=== PATIENT | female | born 1955 | race Caucasian/White ===

== ENCOUNTER → 2017-06-05 08:45 | Outpatient (CLI) | payer BC, SELFPAY ==
--- NOTE | 2017-06-05 08:47 | US_ITS ---
STUDY: ABDOMINAL ULTRASOUND - RIGHT UPPER QUADRANT REASON FOR VISIT: Female, 62 years old. Right upper quadrant pain. TECHNIQUE: Ultrasound evaluation of the right upper quadrant was performed with real-time and static nava-scale imaging. TECHNICAL QUALITY: Adequate. COMPARISON: None. FINDINGS: Liver: The liver measures 15.5 cm. There is increased echogenicity consistent with fatty infiltration. The bile ducts are within normal limits. There is hepatic color flow. The direction of portal flow is hepatopetal. There is no demonstrated mass lesion. Gallbladder: Normal distended gallbladder. The gallbladder wall measures 3.0 mm. There is a negative sonographic Laguna's sign. There is no pericholecystic fluid. There are multiple echogenic structures within the gallbladder, consistent with multiple gallstones. Common Bile Duct (C.B.D.): The common bile duct measures 3.2 mm. Pancreas: Normal size of the head, body and tail of the pancreas. There is normal echogenicity of the pancreas. There is no demonstrated pancreatic mass or cyst. Right Kidney: Normal size of the right kidney. The right kidney measures 10.3 cm x 4.4 cm x 5.4 cm. Normal renal cortex. The right cortex measures 1.5 cm. There is no demonstrated renal mass or cyst. There is no right hydronephrosis. US/Gallbladder IMPRESSION: Multiple gallstones. Fatty infiltration of the liver. Electronically Signed: Eriberto Blanco MD at 13:07 EST Tel [phone], Service support ,
== END ==
PROVIDERS: Family Provider Family Medicine; PCP Family Medicine; Visit Provider Surgery
DX: R10.11 Right upper quadrant pain (principal)
CPT/HCPCS: 76705

== ENCOUNTER 2017-06-13 07:26 | Day surgery (SDC) | payer BC, SELFPAY ==
[2017-06-13] VITALS (7 sets, daily range): BP systolic 129–163; BP diastolic 67–87; PULSE 74–88; RESP 16–18; TEMP 36.3–36.6; O2SAT 94–96; BMI 28.5
--- NOTE | 2017-06-13 | GALL_PTH ---
PATIENT: KURTIS CAT LOC: [facility] [place] U#:[id number] AGE/SX: 62/F ROOM: RE06/13/[address]: Dr. Cachorro Meyers MD : 1955 BED: DIS: 06/13/2017 SPEC #: [id number] RECD: 06/13/17 12:16 STATUS: SUSAN LUCIO #: [id number] MANUEL: 06/13/17 00:[address]: Cachorro Meyers DEPT: SURGICAL PATHOLOGY RECD BY: Mariano Peralta ENTERED: 06/13/17 12:17 SP TYPE: ORLIN BUTTS DR: Dr. Skyler Amador MD Tissues: Gallbladder, NOS Procedures: Surgery Specimen Level III HEADER OPERATION: Laparoscopic cholecystectomy with IOC PRE-OP DIAGNOSIS: Chronic cholecystitis with calculus TISSUE SUBMITTED: Gallbladder MICROSCOPIC DIAGNOSIS Gallbladder: Mild chronic cholecystitis, cholelithiasis and focal cholesterolosis. SJ:patrice 06/16/17 MICROSCOPIC DESCRIPTION Slides are reviewed. GROSS DESCRIPTION Received is one container labeled with the patient's name and designated gallbladder. The specimen consists of a gallbladder measuring 11 cm in length and up to 4 cm in diameter. The external surface is pink-thomas, smooth and glistening for the most part. Focally it is granular, hemorrhagic and contains cautery artifact. The gallbladder contains green-yellow mucoid bile and multiple multifaceted, yellowish-green to brown stones and stone fragments measuring in aggregate 6 x 5.5 x 3 cm and 0.1 to 2.5 cm in greatest dimension. The mucosa is bile-stained and without any mass lesions. The gallbladder wall measures up to 0.2 cm in thickness. Geochemical Laboratory Technician sections from the gallbladder and the cystic duct are submitted in one cassette. / SJ:rg 06/13/17 TC:3 CPT: 82157
--- NOTE | 2017-06-13 07:34 | EKG12_ITS ---
Test Reason : PRE OP Blood Pressure : / mmHG Vent. Rate : 072 BPM Atrial Rate : 072 BPM P-R Int : 164 ms QRS Dur : 084 ms QT Int : 420 ms P-R-T Axes : 006 009 027 degrees QTc Int : 459 ms Normal sinus rhythm Normal ECG No previous ECGs available Confirmed by ORALIA OMALLEY ([id number]), editor sound YAN REBOLLAR ([id number]) on 06/16/2017 2:20:32 PM Referred By: Cachorro Meyers Confirmed By:ORALIA OMALLEY
[2017-06-13 08:04] LABS: Hematocrit 41.6 % (37-47); Hemoglobin 14.2 g/dl (12.0-15.0); Mean Corp Hgb Conc 34.1 g/gl (32-36); Mean Corpuscular Hgb 29.2 pg (27.0-32.0); Mean Corpuscular Volume 85.6 fL (81-99); Mean Platelet Vol. 8.6 fl (6.2-12.0); Platelet Count 338 K/mm3 (150-450); RBC Distribution Width CV 13.4 % (11.6-14.6); RBC Distribution Width SD 41.7 fl (35.1-43.9); Red Blood Count 4.86 M/mm3 (4.2-5.4); Scan Indicated on CBC? Y/N NO
[2017-06-13 08:12] LABS: Anion Gap 8 (5-15); BUN 17 mg/dL (7-18); BUN/Creat Ratio 22.5 RATIO (10-20); Calcium,Total 8.6 mg/dL (8.5-10.1); Chloride 108 mmol/L (98-107); Creatinine, Serum 0.76 mg/dL (0.55-1.02); EST Glomerular Filtration Rate 82 mL/min (>60); Est Glom Filt Rate - Afr Amer 100 mL/min (>60); Estimated Creatinine Clearance 59.92 ml/min; Glucose 103 mg/dL (74-106); Potassium 4.2 mmol/L (3.5-5.1); Sodium Level 142 mmol/L (136-145)
--- NOTE | 2017-06-13 09:24 | PCM.DC.GS ---
Discharge Diet: Light diet - advance as tolerated - if you have questions about your diet instructions, please talk to you doctor. Discharge Activity: May Not Drive - for 1 week or while taking narcotic pain medicine. May shower in (days): 1 Lifting Restrictions: 10 pounds Call your doctor if your incision/area has: Continuous Slow Oozing, Sudden Increased Bleeding, Increased Pain/ Swelling, Increased Redness, Foul Smelling Discharge Call your doctor if you observe: Fever of 101 or Higher Suture Line Care: Avoid Pulling/Pushing, Avoid Pinching/Bending Additional Dressing/Incision Instructions:: Change or remove dressing in 4 days. Leave steri-strips in place for 1 week. Allergies/Adverse Reactions: Allergies acetaminophen [From Percocet] Allergy (Unknown, Verified 06/12/17 13:59) Unknown codeine Allergy (Unknown, Verified 06/12/17 13:59) Unknown oxycodone [From Percocet] Allergy (Unknown, Verified 06/12/17 13:59) Unknown Subzbcx-Lsb-Fne Reductase Inhibitor Allergy (Unknown, Verified 06/12/17 13:59) Unknown Medications to take at Discharge amlodipine 10 mg tablet 10 mg PO QDAY 06/03/17 dicyclomine 20 mg tablet 20 mg PO Q6H PRN 06/03/17 lorazepam 1 mg tablet 1 mg PO Q8H PRN tab 06/03/17 mometasone 220 mcg (14 doses) breath activated powder inhaler 1 puff INHALATION QHS 06/03/17 omeprazole 40 mg capsule,delayed release 40 mg PO DAILY 06/03/17 paroxetine 30 mg tablet 30 mg PO DAILY 06/03/17 venlafaxine ER 75 mg capsule,extended release 24 hr 75 mg PO DAILY 06/03/17 Ascorbic Acid [Vitamin C] 500 mg PO DAILY 06/12/17 Cyanocobalamin (Vitamin B-12) [Vitamin B12] 2,500 mcg PO DAILY 06/12/17 Flaxseed Oil 1,000 mg PO DAILY 06/12/17 Folic Acid 1 mg PO DAILY@0800 06/12/17 Glucosamine/MSM/Chondroitin A [Glucosamine Chondroit MSM Tab] 1 each PO DAILY 06/12/17 Lactobacillus Acidophilus [Acidophilus] 1 each PO DAILY 06/12/17 Lecithin 1,200 mg PO DAILY 06/12/17 Magnesium Oxide [Magnesium] 400 mg PO DAILY 06/12/17 [place]-3 Fatty Acids/Fish Oil [Fish Oil 1,000 mg Capsule] 1 each PO DAILY 06/12/17 Potassium 99 mg PO DAILY 06/12/17 Pyridoxine HCl [Vitamin B6] 100 mg PO DAILY 06/12/17 Ubidecarenone/Vitamin E Mixed [Apu37-Kmp E 200 mg-20 Unit Sfg] 1 each PO DAILY 06/12/17 Vitamin A 8,000 unit PO DAILY 06/12/17 Vitamin D3 1,000 mg PO DAILY 06/12/17 Vitamin E 400 unit PO DAILY 06/12/17 Yeast,Dried (S. Cerevisiae) [Gold's Yeast] 1,000 mg PO DAILY 06/12/17 Zinc 50 mg PO DAILY 06/12/17 Hydrocodone Bitart/Apap 5-325 [[place] 5MG-325MG] 1 tablet PO Q6H PRN PRN 3 Days #6 tablet 06/13/17 The following prescriptions were given: Hydrocodone Bitart/Apap 5-325 [[place] 5MG-325MG] 1 tablet PO Q6H PRN PRN 3 Days #6 tablet PRN Reason: Pain Primary Care Physician: Skyler Amador [Primary Care Provider] - Please Follow Up With: Cachorro Meyers MD - [phone] When: Call to make an appointment to be seen in about 10 days.
--- NOTE | 2017-06-13 09:29 | RAD_ITS ---
STUDY: INTRAOPERATIVE CHOLANGIOGRAM. REASON FOR EXAM: Female, 62 years old. Laparoscopic cholecystectomy. FLUOROSCOPY TIME (if supplied): (9 seconds) minutes/seconds TECHNIQUE: Intraoperative cholangiogram was performed by the surgeon. Imaging was submitted. COMPARISON: None. FINDINGS: The common bile duct is not dilated. No intraluminal filling defect is seen. There is free flow of contrast into the duodenum. RAD/Cholangiogram/ O R,Initial IMPRESSION: Unremarkable examination. Electronically Signed: Eriberto Blanco MD at 12:24 EDT Tel [phone], Service support ,
[2017-06-13] MEDS: Cefazolin 2 GM in 0.9% Normal Saline 100 ML IV (09:43)
[2017-06-13] MEDS: Bupivacaine Mpf 0.5% 30 ML VIAL (10:30)
--- NOTE | 2017-06-13 10:36 | OP.PCM_ITS ---
Problem List (1) Chronic cholecystitis with calculus Status: Acute Report of Operation Date of Procedure: 06/13/17 Pre-Operative Diagnosis: Chronic cholecystitis cholelithiasis Post-Operative Diagnosis: same Surgery/Procedure Performed:: Laparoscopic cholecystectomy with cholangiography Description of Surgical Findings:: Timeout and informed consent was obtained. 62-year-old female taken out from placement table underwent general ventricular-based anesthesia. Ancef 2 g given intravenously preoperatively. 0.5% Marcaine was used as local anesthetic. Throughout the procedure total 30 cc was used. Skin sites were pre -anesthetized. Because of her previous mesh repair at the umbilicus I made a vertical incision superior to that previous incision did a direct cutdown technique at direct access to the abdomen placed in a Laguna catheter. The abdomen was insufflated with CO2 to pressure of 10 mmHg pressure. There is no evidence of any adhesions to the anterior abdominal wall. There were adhesions of omentum however to the gallbladder consistent with previous bouts of inflammation. 5 mm trochars are placed in the epigastrium and mid abdomen and right upper quadrant. The gallbladder was distracted the adhesions the omentum were sharply and bluntly dissected free. Then the infundibular area was dissected free. Hemoclips were used for hemostasis were indicated. The hepatocystic triangle was fully dissected free and the cystic duct and cystic artery were clearly identified. A Hem-o-bella clip was placed on the cystic duct incision in the cystic duct and through a 14-gauge Angiocath Bruneian Garrett catheter was inserted. Fluoroscopically controlled claims grams were obtained demonstrating normal ductal anatomy and free flow into the small bowel. Then the cholangiogram catheter was removed and additional Hem-o-bella clip was placed on the cystic duct prior to transecting it. The cystic artery was clipped twice proximally prior to transecting it. The gallbladder was dissected free from the liver bed. The liver bed was actually very using despite the fact that the adherence of the gallbladder was not significant. Electrocautery was used for hemostasis. The gallbladder was released and placed in retrieval bag. The right upper quadrant was irrigated and aspirated free of excess fluid. Hemostasis was intact. A piece of fibular was placed in the liver bed as well. The gallbladder was exited the umbilicus because of a sizable gallstone the fascial incision was lengthened slightly widened superiorly. The gallbladder was successfully released. The remaining trochars were removed under direct visualization. The abdomen was allowed to deflate of the CO2. The fascia at the umbilicus was approximated running 0 Vicryl suture. Skin edges proximate interrupted from 4-0 Monocryl subdermal stitches. Steri-Strips Telfa and OpSite dressings applied. Sponge instrument and needle counts were reported to the surgeon to be correct. Blood loss was minimal no apparent complication she was taken to the recovery room in satisfactory condition. Specimens gallbladder. Drains none. Blood loss minimal. Cachorro Meyers M.D., F.A.C.S.
[2017-06-13] MEDS: Ketorolac 15 MG/ML Vial IV (11:55)
== END 2017-06-13 13:55 | disposition home or self-care (01) ==
LOC: SDC 07:28 → AC 07:28
PROVIDERS: Anesthesiology; Family Provider Family Medicine; PCP Family Medicine; Visit Provider Surgery
PROC: (CPT 47610; principal; 2017-06-13 09:10)
DX: K80.10 Calculus of gallbladder with chronic cholecystitis without obstruction (principal); I10 Essential (primary) hypertension; F41.9 Anxiety disorder, unspecified; K58.9 Irritable bowel syndrome, unspecified; K21.9 Gastro-esophageal reflux disease without esophagitis; E78.00 Pure hypercholesterolemia, unspecified; F32.9 Major depressive disorder, single episode, unspecified; Z79.899 Other long term (current) drug therapy
CPT/HCPCS: 47563; 36415; 74300; 76000; 80048; 85027; 88304; 93005; J7120; J2405

== ENCOUNTER → 2020-09-22 | Outpatient (CLI) | payer MEDICARE, OTHER, SELFPAY ==
[2017-06-13 07:52] VITALS: BMI 28.5
[2020-09-22 17:40] LABS: RBC /Synovial Fluid 0.066 10^6/uL (0); Synovial Fld Mononuclear WBC % 23.4 %; Synovial Fld Polynuclear WBC # 1.733 10^3/uL; Synovial Fld Polynuclear WBC % 76.6 %
[2020-09-22 17:43] LABS: AUTO B FLUID DILUENT BKGD CT WBC <0.1 RBC <0.01 (W<.1,R<.01); CRYSTALS, BODY FLUID See PATH REV
[2020-09-22 17:45] LABS: Viscosity / Synovial Fluid Liquid (HIGH)
[2020-09-22 17:46] LABS: Appearance /Synovial Fluid Opaque (CLEAR); Color / Synovial Fluid Red (Pale Yellow); Synovial Fld Mononuclear WBC # 0.528 10^3/ul
[2020-09-22 17:59] LABS: Source / Synovial Fluid LEFT ELBOW
[2020-09-22 19:26] LABS: Lymph 13 %; Monocyte /Synovial Fluid 13 %; Neutrophil 73 % (0-25)
[2020-09-22 19:27] LABS: Body Fluid QC Type(s) BF1,BF2; Other Cell /Synovial Fluid 1 %; Source- Body Fluid SYNOVIAL
[2020-09-25 13:40] LABS: Pathologist Review Reviewed
[2020-09-25 13:41] LABS: Pathologist Comment Reviewed
== END | disposition home or self-care (01) ==
LOC: LABSPEC 16:36
PROVIDERS: PCP Family Medicine; Referring Provider Orthopaedic Surgery; Visit Provider Orthopaedic Surgery
DX: M70.22 Olecranon bursitis, left elbow (principal)
CPT/HCPCS: 87070; 87075; 87205; 89050; 89051; 89060

== ENCOUNTER → 2021-10-16 | Outpatient (CLI) | payer MEDICARE, OTHER, SELFPAY ==
[2021-10-16 11:28] LABS: Absolute Lymphocyte Count 1.39 X10^3/uL (0.83-4.51); Basophil# 0.04 X10^3/uL; Basophil% 0.8 % (0-1); Eosinophil# 0.19 X10^3/uL; Eosinophils% 3.7 % (0-5); Hematocrit 43.4 % (37-47); Hemoglobin 14.4 g/dL (12.0-15.0); Lymphocyte # 1.39 X10^3/ul (0.83-4.51); Lymphocyte % 27.1 % (19-41); Mean Corp Hgb Conc 33.2 g/dL (32-36); Mean Corpuscular Hgb 30.2 pg (27.0-32.0); Monocyte# 0.44 X10^3/uL; Monocyte% 8.6 % (0-10); NRBC Flagged by Analyzer 0 % (0-5); Neutrophil # 3.04 X10^3/uL (2.7-7.7); Neutrophil % 59.4 % (47-70); Platelet Count 366 K/mm3 (150-450); RBC Distribution Width CV 12.1 % (11.6-14.6); RBC Distribution Width SD 40.3 fl (35.1-43.9); Red Blood Count 4.77 M/mm3 (4.2-5.4); White Blood Count 5.1 K/mm3 (4.4-11.0)
[2021-10-19 11:08] LABS: Alternaria tenuis <0.10 kU/L (Class 0); Ash, White <0.10 kU/L (Class 0); Aspergillus fumigatus <0.10 kU/L (Class 0); Bermuda Grass <0.10 kU/L (Class 0); Birch <0.10 kU/L (Class 0); Black Walnut <0.10 kU/L (Class 0); Cat Hair / Dander,Stand <0.10 kU/L (Class 0); Cedar, Mountain <0.10 kU/L (Class 0); Cladosporium herbarum <0.10 kU/L (Class 0); Cockroach, American <0.10 kU/L (Class 0); Cottonwood <0.10 kU/L (Class 0); D farinae Mite <0.10 kU/L (Class 0); D pteronyssinus <0.10 kU/L (Class 0); Dog Epithelia <0.10 kU/L (Class 0); Elm, American White <0.10 kU/L (Class 0); Immunoglobulin E 6 IU/mL (6-495); Maple/Box Elder <0.10 kU/L (Class 0); Mulberry, White <0.10 kU/L (Class 0); Oak, White <0.10 kU/L (Class 0); Pecan <0.10 kU/L (Class 0); Penicillium Notatum <0.10 kU/L (Class 0); Pigweed, Rough <0.10 kU/L (Class 0); Ragweed, Short/Common <0.10 kU/L (Class 0); Russian Thistle <0.10 kU/L (Class 0); Sheep Sorrel <0.10 kU/L (Class 0); Sycamore, American <0.10 kU/L (Class 0); Timothy Grass <0.10 kU/L (Class 0)
[2021-10-19 22:12] LABS: Mouse Urine <0.10 kU/L (Class 0)
[2021-10-19 22:13] LABS: Immunoglobulin E 6 IU/mL (6-495)
== END | disposition home or self-care (01) ==
PROVIDERS: PCP Family Medicine; Referring Provider Internal Medicine Critical Care Medicine; Visit Provider Internal Medicine Critical Care Medicine
DX: J30.9 Allergic rhinitis, unspecified (principal); J45.909 Unspecified asthma, uncomplicated
CPT/HCPCS: 36415; 82785; 85025; 86003

== ENCOUNTER → 2021-11-08 | Outpatient (CLI) | payer MEDICARE, OTHER, SELFPAY ==
--- NOTE | 2021-11-09 07:29 | PFT ---
INTRODUCTION: The patient is a 66-year-old female that presents for pulmonary function studies secondary to a diagnosis of asthma. Respiratory therapy reported good patient effort. Bronchodilators were used during testing. INTERPRETATION: Forced expiration spirometry demonstrates no evidence of a large airways obstructive ventilatory defect. There was no significant response to aerosolized bronchodilators. Spirograms are of good quality and plateau normally. Body plethysmography was performed and reveals lung volumes to be within normal limits. Diffusing capacity by single breath CO is also within normal limits. IMPRESSION: Grossly normal pulmonary function studies.
== END | disposition home or self-care (01) ==
LOC: PSN 09:37
PROVIDERS: PCP Family Medicine; Referring Provider Internal Medicine Critical Care Medicine; Visit Provider Internal Medicine Critical Care Medicine
DX: J45.909 Unspecified asthma, uncomplicated (principal)
CPT/HCPCS: 94060; 94726; 94729

== ENCOUNTER → 2022-09-03 | Outpatient (CLI) | payer MEDICARE, OTHER, SELFPAY ==
--- NOTE | 2022-09-03 16:39 | PFT ---
Methacholine challenge testing report Indication: Asthma Referring physician: Saulo Amador, DO The patient had methacholine challenge testing, with baseline spirometry, followed by progressively increasing doses of methacholine's from 0.0038-0.9571 methacholine concentrations. Results: Baseline spirometry was normal. FEV1 was 111% predicted. The patient completed dose level 5 of 6. There was no significant decrease in FVC or FEV1; the maximum change was -5% in FVC at level 5. Review of the flow volume loops corroborate the lack of airway obstruction at all doses of methacholine tested. Manager Telemarketing comments indicate acceptable and reproducible results, with good patient effort. Impression: Normal methacholine challenge test, with no evidence of airway reactivity Clinical correlation is recommended regarding any medications the patient may have taken, and when, prior to this test.
== END | disposition home or self-care (01) ==
PROVIDERS: PCP Family Medicine; Referring Provider Internal Medicine Critical Care Medicine; Visit Provider Internal Medicine Critical Care Medicine
DX: J45.909 Unspecified asthma, uncomplicated (principal)
CPT/HCPCS: 94070; 95070; J3490; J7674

== ENCOUNTER → 2023-01-23 | Outpatient (CLI) | payer MEDICARE, OTHER, SELFPAY ==
[2023-01-23 15:21] LABS: Absolute Lymphocyte Count 1.54 X10^3/uL (0.83-4.51); Absolute Neutrophil Count 2.9 X10^3/uL (2.0-7.7); Basophil# 0.05 X10^3/uL; Eosinophil# 0.26 X10^3/uL; Eosinophils% 4.9 % (0-5); Hematocrit 42.9 % (37-47); Lymphocyte # 1.54 X10^3/ul (0.83-4.51); Lymphocyte % 29.3 % (19-41); Mean Corp Hgb Conc 32.6 g/dL (32-36); Mean Corpuscular Hgb 29.4 pg (27.0-32.0); Mean Corpuscular Volume 89.9 fL (81-99); Mean Platelet Vol. 9.3 fl (6.2-12.0); Monocyte# 0.52 X10^3/uL; Monocyte% 9.9 % (0-10); NRBC Flagged by Analyzer 0 % (0-5); Neutrophil # 2.88 X10^3/uL (2.7-7.7); Neutrophil % 54.7 % (47-70); Platelet Count 355 K/mm3 (150-450); RBC Distribution Width CV 12.5 % (11.6-14.6); Red Blood Count 4.77 M/mm3 (4.2-5.4); White Blood Count 5.3 K/mm3 (4.4-11.0)
[2023-01-23 15:32] LABS: Erythrocyte Sedimentation Rate 3 mm/hr (0-30)
[2023-01-23 16:11] LABS: CRP < 2.90 mg/L (0.0-3.0)
== END | disposition home or self-care (01) ==
LOC: MTLAB 11:53
PROVIDERS: PCP Family Medicine; Referring Provider Specialist; Visit Provider Specialist
DX: Z96.651 Presence of right artificial knee joint (principal)
CPT/HCPCS: 36415; 85025; 85652; 86140

== ENCOUNTER 2023-08-06 05:24 | Inpatient (IN) | payer MEDICARE, OTHER, SELFPAY ==
--- NOTE | 2023-07-22 09:53 | EKG12_ITS ---
Test Reason : PRE-OP Blood Pressure : / mmHG Vent. Rate : 078 BPM Atrial Rate : 078 BPM P-R Int : 170 ms QRS Dur : 090 ms QT Int : 402 ms P-R-T Axes : 006 010 041 degrees QTc Int : 458 ms Normal sinus rhythm Normal ECG Confirmed by TREVIN SHARMA, DAISY ([id number]), telegraph editor DALLAS ANDRES ([id number]) on 07/28/2023 1:31:17 PM Referred By: MARLENY Confirmed By:ZEV ZHONG MD
[2023-07-22 10:57] LABS: Absolute Lymphocyte Count 1.55 X10^3/uL (0.83-4.51); Absolute Neutrophil Count 3.2 X10^3/uL (2.0-7.7); Basophil# 0.04 X10^3/uL; Basophil% 0.7 % (0-1); Eosinophil# 0.24 X10^3/uL; Eosinophils% 4.4 % (0-5); Hematocrit 44.4 % (37-47); Hemoglobin 14.5 g/dL (12.0-15.0); Lymphocyte # 1.55 X10^3/ul (0.83-4.51); Lymphocyte % 28.1 % (19-41); Mean Corp Hgb Conc 32.7 g/dL (32-36); Mean Corpuscular Hgb 29.2 pg (27.0-32.0); Mean Corpuscular Volume 89.3 fL (81-99); Mean Platelet Vol. 9.3 fl (6.2-12.0); Monocyte% 9.1 % (0-10); NRBC Flagged by Analyzer 0 % (0-5); Neutrophil # 3.17 X10^3/uL (2.7-7.7); Neutrophil % 57.5 % (47-70); Platelet Count 358 K/mm3 (150-450); RBC Distribution Width CV 12.4 % (11.6-14.6); RBC Distribution Width SD 40.4 fl (35.1-43.9); Red Blood Count 4.97 M/mm3 (4.2-5.4); White Blood Count 5.5 K/mm3 (4.4-11.0)
[2023-07-22 11:31] LABS: Magnesium 2.4 mg/dL (1.6-2.6)
[2023-07-22 11:33] LABS: Albumin, Serum 4.1 g/dL (3.2-5.0); Anion Gap 5 (5-15); BUN 17 mg/dL (7-18); Calcium,Total 9.6 mg/dL (8.5-10.1); Chloride 107 mmol/L (98-107); Creatinine, Serum 1.06 mg/dL (0.55-1.02); EST Glomerular Filtration Rate 55 mL/min (>60); Est Glom Filt Rate - Afr Amer 66 mL/min (>60); Glucose 121 mg/dL (74-106); Potassium 4.2 mmol/L (3.5-5.1); Sodium Level 139 mmol/L (136-145)
--- NOTE | 2023-08-01 12:35 | PCM.HP.BLA ---
History and Physical History and Physical? Patient Name: Tracy Boucher : 1955 From:? ABBIE BROUSSARD PA-C? DATE OF PRE-OPERATIVE EXAM: 08/01/2023 DATE OF SURGERY:? 08/06/2023 SCHEDULED PROCEDURE:? Revision left total knee arthroplasty HISTORY OF PRESENT ILLNESS: Preoperative history and physical exam was performed on August 01, 2023.? This is a 68-year-old female who is undergone a previous left total knee arthroplasty at an outside institution.? She had a knee replacement which the implant was recalled.? She has a [employer] knee replacement.? Patient had surgery by Dr. Lauren at the [facility] [place] on March 01, 2017.? She also had a prior knee arthroscopy on that knee.? Patient's current pain is 9/10.? Her pain is dull, aching, sharp and sore.? Pain is increased with going up and down stairs and walking.? She does complain of instability with the left knee.? Pain is located over the anterior knee.? Pain does not awaken her at night.? Patient also reports that she did not ever get adequate relief of her pain and swelling following rehabilitation and surgery.? She has fallen secondary to the knee pain.? She feels unsafe running.? Patient has difficulty with activities of daily living including shopping and leisure activities such as playing pickleball.? Patient has attempted a brace without relief.? She also complains of severe pain in her right knee.? Patient has had previous right knee arthroscopy in the past in 2017.? Gastroesophageal reflux disease, dural bowel syndrome, thyroid disease, anxiety, depression, prediabetes with last A1c 6.0, stage II chronic kidney disease.? She denies past history of DVT or pulmonary embolism.? There is been no recent fevers, chills, recent infections.? Denies chest pain or shortness of breath.? Patient has obtain surgical clearance from Dr. Amador.? After failing conservative measures and discussing all treatment options with Dr. Jose R Skelton, the patient does wish to proceed with a revision left total knee arthroplasty. REVIEW OF SYSTEMS: Review Of Systems: Constitutional: Denies change in appetite, fever,or weight change. Cardiovasular: Denies chest pain, heart murmur and irregular heartbeat. Respiratory: Denies cough, pneumonia, shortness of breath, tuberculosis and wheezing. Gastrointestinal: Reports constipation and heartburn, but denies diarrhea, nausea, rectal itching, bloody stools and vomiting. Genitourinary: Denies female genital problems. Denies incontinence. Musculoskeletal: Reports leg swelling, pain, trouble walking and weakness. Skin: Denies Raynaud's, history of shingles and tattoo. Neurological: Denies ambulatory dysfunction, dizziness, numbness/tingling and tremor. Psychiatric: Reports anxiety and insomnia, but denies stress. Hematologic/Lymphatic: Denies anemia, bleeding/bruising tendency and past transfusion. Reviewed, no changes. PAST MEDICAL HISTORY: Advance Care Plan: Other Directive, POA Effective Date: 09/19/2020 Other Directive, LIVING WILL Effective Date: 09/19/2020 Past Medical History: Medical Problems: Arthritis, High Blood Pressure, Hypercholesterolemia, Acid Reflux, Irritable Bowel, Thyroid Disease, Anxiety, Depression, pre-diabetes Kidney Disease/Renal Failure - stage 2? Accidents: Fracture - (11/20/2022) LT SHOULDER FX / FELL WHILE RUNNING? Surgical Hx: Tonsillectomy - [facility] Tubal Ligation - [facility] DR AMADOR Carpal Tunnel 1998 - B/L DR MARYSOL MORRIS Knee Arthroscopy LT - (2015) RT Thumb LT Knee Arthroscopy - (04/19/2016) SAW@[facility] Knee Arthroscopy RT - (2016) MENISCUS Gallbladder - (2018) Knee Replacement LT - (2016) Trigger Finger Release - METATARSALS 4 AND 3 RT AND LT? Anesthesia Complications: None Assistive Devices: Glasses Reviewed and updated. SOCIAL HISTORY: Social History: Marital: .Occupation: Not Currently Working.Work Status: Not Working Currently.Hand Dominance: Right-handed. Personal Habits:? Cigarette Use: Never Smoked Cigarettes.Smokeless Tobacco: Never Used Smokeless Tobacco.E-Cigarette Use: Never used.Alcohol: Occasionally.Drug Use: Denies Use.Enjoy Exercising: Exercises 1-3 X/Week. Reviewed, no changes. VITALS: Ht: 62.7 Wt: 171lb Wt k.566 BMI: 30.6 BP: 130/78 Pulse: 82 Resp: 18 T: 98.4 T: 36.9C Pain Level: 9 O2SatR: 96 ALLERGIES: Sulfa Codeine Statin Drugs? MEDICATIONS: Paroxetine HCL 30 mg 1 tab po daily, Amlodipine Besylate 10 mg 1 by mouth every day, Venlafaxine HCL ER 75 mg 1 by mouth every day, Omeprazole 40 mg 1 cap po daily, Dicyclomine HCL 20 mg 1 by mouth three times a day, Lorazepam 1 mg 2 tab po daily, Mucinex? as needed, Natural Vitamins? daily, Levothyroxine Sodium 50 mcg one tab po once daily, Fenofibrate 40 mg daily, Calcium 280 mg daily, Zinc 30 mg daily, Magnesium 300 mg daily PRE-OP EXAM:? General appearance:NORMAL? ? ? Other: Eyes: Conjunctivae and lids: NORMAL? Pupils: ERR Ears, Nose, Mouth, and Throat: NORMAL? Other: Inspection of lips, teeth and gums: NORMAL? ?Other: Neck: Examination of neck: no masses noted. Respiratory: Assessment of respiratory effort: NORMAL? ?Other: ?Auscultation of lungs: clear to auscultation no wheezes, rhonchi or rales. Cardiovascular:? Auscultation of heart: regular rate and rhythm, no murmurs, gallops or rubs. PHYSICAL EXAMINATION: Patient does walk with an antalgic gait.? Previous incision is well-healed without erythema.? She has increased pain over the anterior knee at the pes anserine region.? There is tenderness to palpation in this area.? Range of motion: 0 extension to 122 flexion.? Stable to varus/valgus stress test. IMAGING STUDIES: Previous x-rays of the left knee reveal well aligned total knee replacement with well fixed tibial implant.? Femoral implant shows questionable lucency behind the anterior flange.? Patella tracks well.? On the Contralateral knee did reveal varus alignment with medial joint space narrowing, subchondral sclerosis, osteophyte formation consistent with severe stage IV bone on bone osteoarthritis. IMPRESSION: 1.? Painful left total knee arthroplasty 2.? Severe right knee osteoarthritis 3.? Hypertension 4.? Hypercholesterolemia 5.? Gastroesophageal reflux disease 6.? Irritable bowel syndrome 7.? Thyroid disease 8.? Depression/anxiety 9.? Prediabetes: Most recent A1c 6.0 10.? Stage II chronic kidney disease 11.? Obesity with BMI 30.6 PLAN: Dr. Jose R Skelton did discuss and review with the patient all treatment options including surgical versus nonsurgical options.? Patient does wish to proceed with the above-stated procedure.? Potential risks, benefits, and complications of the procedure were discussed in detail including but not limited to , infection, nerve and blood vessel damage, persistent pain, numbness, tingling, paresthesias, blood clot, pulmonary embolism, and requirement for possible further surgery.? The patient expressed full understanding and has no further questions for the doctor.? Patient does agree to proceed with the above-stated procedure and has signed the surgery consent form. POST-OP MEDICATION PLAN: Pain Medications:? Postoperative pain regimen will be initiated by Dr. Jose R Skelton in the hospital.? Patient thinks there may have been a narcotic that she did not tolerate well.? She will contact our office if she does remember or find out which one it was.? We are unable to use nonsteroidal anti-inflammatories due to the chronic kidney disease.? We discussed postoperative antibiotics including doxycycline in which she is more sensitive to the sunlight and should take appropriate precautions.? Also recommend probiotic while on the antibiotic. DVT Prophylaxis:? Aspirin 81 mg twice daily for 4 weeks postoperatively.? Denies past history of DVT or pulmonary embolism This dictation was created using voice recognition software. Phonetic and/or grammatical errors may exist. ___? I have re-examined the patient.? There are no clinical changes since date of exam. ___? See progress notes for changes. ___? Dictated on admission Date: ? ? ?Time: Signature:
[2023-08-06] VITALS (13 sets, daily range): BP systolic 124–158; BP diastolic 63–80; PULSE 95–117; RESP 14–18; TEMP 36.2–37.2; O2SAT 93–99; BMI 31.4
[2023-08-06] MEDS: Lactated Ringers 1,000 ML 999 ML IV ×2 (06:19→11:37)
[2023-08-06] MEDS: Magnesium 1 GM over 15 mins IV (06:20)
[2023-08-06] MEDS: Gabapentin 600 MG Tablet PO (06:21)
[2023-08-06] MEDS: Acetaminophen 500 MG Tablet 1000 MG PO ×3 (06:21→20:48)
[2023-08-06] MEDS: Lactated Ringers 1,000 ML 75 ML IV (06:23)
[2023-08-06 06:57] LABS: Bedside Glucose 135 mg/dL (74-106)
--- NOTE | 2023-08-06 08:00 | FORE_PTH ---
PATIENT: KURTIS CAT LOC: [facility] U#:[id number] AGE/SX: 68/F ROOM: [facility] [place] RE08/06/[address]: Dr. Jose R Skelton MD : 1955 BED: 1 DIS: 08/07/2023 SPEC #: [id number] RECD: 08/06/23 11:18 STATUS: SUSAN VALDES #: [id number] MANUEL: 08/06/23 08:[address]: Jose R Skelton DEPT: SURGICAL PATHOLOGY RECD BY: Abbey Porras ENTERED: 08/06/23 11:27 SP TYPE: FOREIGN B OTHR DR: Dr. Skyler Amador MD Tissues: FOREIGN BODY Procedures: Surgery Specimen Level I HEADER OPERATION: ERAS, total knee replacement, revision PRE-OP DIAGNOSIS: Painful left total knee arthroplasty, severe right knee osteoarthritis TISSUE SUBMITTED: Left knee hardware for recall MICROSCOPIC DIAGNOSIS Bone and soft tissue, left knee hardware, total knee replacement, revision: Orthopedic hardwares (Gross only). A piece of fibroconnective tissue and bone with reactive changes. CARLY: 08/07/23 MICROSCOPIC DESCRIPTION Slides are reviewed. GROSS DESCRIPTION Received in fixative is one container labeled with the patient's name and designated Left knee hardware for recall. The specimen consists of a metallic hardware and polymeric components from knee joint. Metallic tibial plateau component measures 7.0 x 4.0cm and underneath elongated metallic portion measures 5.5cm in length and 1.5cm in diameter. Inscriptions on this piece are as follows: 2.5F/1.F5T and [id number]. [id number]. Cement material is also noted underneath the tibial plateau component. Also present is a metallic femoral condyle component which measures 6.5 x 7.0 x 5.0cm. The inscriptions on this piece are as follows: 2.5L, C. Also present is a polymeric tibial plateau component which measures 7.0 x 4.5 x 1.2cm. Also present is a polymeric patella component measuring 3.5cm in diameter and up to 0.6cm in depth, small amount cement material is noted adherent to this piece. Also present in the container is a piece of pink indurated tissue measuring 1.5 x 1.5 x 0.3cm. Metallic hardware and polymeric components of knee joint are for gross only. Soft tissue is submitted entirely in one cassette. CARLY/ 08/06/23 TC:5 CPT: 89888, 38989
[2023-08-06] MEDS: Cefazolin 2 GM in 0.9% Normal Saline (100mL Bag) 100 ML IV (08:05)
[2023-08-06] MEDS: TXA 1000mg in NS100 100ml (IVPB at Incision) 660 MG IV (08:15)
[2023-08-06] MEDS: dexAMETHasone 10 MG/ML Vial IV (08:15)
[2023-08-06] MEDS: TXA 1000mg in NS100 100ml (IVPB at Closure) 660 MG IV (09:47)
[2023-08-06] MEDS: JPS (Morphine 10mg/ml) OPERA.SITE (09:59)
--- NOTE | 2023-08-06 10:17 | PCM.OPRPT ---
Report of Operation Date of Procedure: 08/06/23 Pre-Operative Diagnosis: Failed left total knee replacement, polyethylene failure. Post-Operative Diagnosis: Failed left total knee replacement, polyethylene failure. Aseptic loosening femur Surgery/Procedure Performed:: REVISION LEFT TOTAL KNEE ENTIRE TIBIA AND FEMORAL COMPONENTS Description of Surgical Findings:: Femoral component was completely loose from cement mantle Surgeon: Jose R Skelton occasional babysitter: Shmuel Narayanan Type of Anesthesia: Spinal Anesthesiologist: Nicolas Blank Special Medications: 2 g Ancef, 1 g TXA at incision, 1 g TXA closure, 10 mg Decadron, joint cocktail (5 mg Duramorph, 30 mL of 0.5% Ropivicaine, 1000 units of epinephrine, 30 mg of Toradol) Specimen's removed: 3 separate specimens were sent to microbiology Estimated Blood Loss (mL): 75 Fluids Replaced: 2000 ML Description of Procedure: Implants used: Femur: Vidor triathlon size 3 total stabilized femoral component with 5 mm augment distally medially and laterally and posteriorly 5 mm lateral augment. 12 x 100 mm cemented stem Tibia: Cecelia size 3 universal tibial baseplate with 12 x 50 mm cemented stem. Size B tibial cone Poly: Vidor X3 polyethylene 3 x 9 mm Patella: Cecelia 35 mm press-fit patella Brief history operative indications: 68-year-old F with total knee replacement in [facility] with previous recalled implant. Patient demonstrated clinical pain and swelling. After ruling out infection we agreed to proceed with revision total knee replacement which had risks which include but not limited to blood loss, DVTs, PEs, nervous damage, infection, the risk of anesthesia. Patient demonstrate understanding was able to sign informed consent. Medical clearance was obtained. Procedure: On the date of procedure patient's L lower extremity was marked in the preoperative area. The patient was then taken back to the operating room where the patient was placed on the table in the supine position. All bony prominences were identified a well-padded. Anesthesia assumed control of the C-spine and airway and remained controlled throughout the remainder of the procedure. A tourniquet was placed on the L upper thigh and the leg was prepped in a sterile fashion. The surgeon then scrubbed at this time. Upon reentering the room L lower extremity was draped in a standard orthopedic fashion. A timeout was then called and everyone agreed upon the side, the site, the procedure to be performed, patient's identity and antibiotics given. An Esmarch bandage was used to exsanguinate the extremity and the tourniquet was placed up to 250 mmHg with the knee in flexion. A midline skin incision was made using the previous incision and extending it proximally and distally to identify normal tissue planes. Medial and lateral flaps were developed appropriate releases. The standard medial parapatellar arthrotomy was made and the patella was subluxed laterally. At this time an aggressive synovectomy was performed re-creating the medial gutter first, then the suprapatellar pouch than the lateral gutter. Once this was completed the knee was flexed up an osteotome was used to remove the tibial polyethylene. The remainder of the synovium was debrided. The standard deep MCL release was done and the patella scar pad was resected and lateral releases were performed. Next our attention was directed to the femur. Where flexible osteotomes were used to break up the implant cement interface. This was done both medially and laterally. After this a bone tamp was used to remove the femur component from the end of the bone. This was done with minimal bone loss. In fact, the femoral implant came clean off of the cement without any residue remaining on the implant. Cement was then debrided from the distal femur. At this time attention was now directed towards the proximal tibia. Possible osteotome and TPS saw were then used to break up the proximal tibia implant interface and stacked osteotomes were used to remove the tibial implant. This was done with minimal bone loss. Our attention was then turned to the tibia where the intramedullary canal was reamed to 14mm distally and proximally with a proximal reamer and a size B tibial cone was reamed. We then made a cleanup cut on the tibia, A drop kali was then used to verify the cut. A size 3 tibial base plate was selected. the knee was flexed and the tibial component was pinned into place and the boss reamer was used to ream the proximal medullary canal. The trial implant was impacted in its prepared position. Our attention was then turned back to the femur or the femur intramedullary canal was reamed to 15 mm using the previous implants a size 3 TCG cutting guide with a 14 mm stem was put into place. The medial epicondyle was used to set the joint line. With this TCG cutting guide we used a 13 mm polyethylene trial in order to help balance the gaps. Once the gaps were appropriately balanced the guide was firmly pinned into place. Distal cuts were made with 5 mm augments medially and 5 mm augment laterally. Posterior cuts were made with 0 mm augments medially and 5 mm augment laterally. Using the guide the box cut was made using a reciprocating saw. The appropriate trials were then placed on the femur and tibia. A trial polyethylene was trialed to ensure proper balancing and stability of the knee. Patella tracking, was then verified and corrected appropriately as needed. Our attention was then directed to the patella. Based on the recall polyethylene we elected to replace the patella. Patella was everted. Saw was used to break up the bone cement interface. Patella was removed. 35 mm patella was selected. Cleanup cut was made. Lug holes were drilled. Trial patella was put in place. Patellar tracking was again checked and deemed appropriate. Final components were verified and opened, 6 liters of normal saline were irrigated throughout the joint under low-pressure lavage. Then the cement was mixed in a vacuum. [employer] Simplex cement with tobramycin was used. The wound was copiously irrigated with normal saline. When the cement was ready cement plugs were placed in the tibial cone was placed the components were cemented into place starting with the tibia, femur. The trial poly component was placed and the knee was placed in full extension. All excess cement was removed in the process. Finally the press-fit patella was put in place. Once the cement had cured the tracking, alignment and balance were verified and a size 13 mm PS polyethylene component was placed. Once the final components were placed a 3-minute dilute Betadine lavage followed by a chlorhexidine lavage was used and the wound was copiously irrigated with normal saline solution and the remainder of the periarticular injection was given. The wound was closed in a layer meier fashion using #1 vicryl interrupted sutures for the arthrotomy, 2-0 interrupted Vicryl for the subcuticular layer and jorge l for final skin closure. A sterile compressive dressing was then placed. The patient was then awakened from anesthesia, transferred to the [facility] and transferred to the PACU for recovery. Post op plan DVT ppx: ASA 81mg BID, thigh high compression stockings Follow up: in office in 2 weeks for wound check PT: to start POD #0 at hospital, outpatient PT should be arranged. My physician [employer] assistant principal was a vital part of this case. He was important in appropriate retraction during the case, and protection of soft tissues during bony cuts. His intimate knowledge of the case and my steps aided in safe and expedient completion of the procedure as well as appropriate position of the leg during the case. He was also vital in assisting with closure under my direct supervision. Admit VTE Documentation VTE Present on Admission: No VTE Mechan Device Prophylaxis: SCD's and Thigh High PAPA Hose VTE Pharm Prophylaxis ordered?: Yes
--- NOTE | 2023-08-06 11:15 | RAD_ITS ---
STUDY: X-RAY - LEFT KNEE REASON FOR EXAM: Female, 68 years old. Post op -- AP and Lateral xray of operative knee in PACU TECHNIQUE: 2 view(s) of the knee. COMPARISON: None. FINDINGS: Normal visualized distal femur. Normal visualized proximal tibia and fibula. Normal proximal tibiofibular articulation. The patient is status post total knee replacement. There is good alignment. Postoperative soft tissue changes. RAD/Knee 1 or 2 Views IMPRESSION: Status post total knee replacement. There is good alignment. Postoperative soft tissue changes. Electronically Signed: Eriberto Blanco MD at 12:26 EDT ,
[2023-08-06] MEDS: Lactated Ringers 1,000 ML 1 ML IV (11:32)
--- NOTE | 2023-08-06 14:18 | CON.PCM.HO_ITS ---
Assessment & Plan Assessment/Plan (1) HTN (hypertension): PLAN: Plan #Revision of left total knee arthroplasty * today is POD 1 * management as per primary service orthopedic surgery * PT./OT on board * fall precautions. * pain management as per primary team * #Hypertension: on amlodipine #GERD; on PPI #IB: stable #Anxiety and depression; on venlafaxine and lorazepam as well as paroxetine. #Hyperlipidemia: on fenofibrate #Hypothyroidism: on synthroid DVT prophylaxis: as per primary team Thank you for the courtesy of the consult. Hospitalist service will continue to follow patient with you. HPI Consult Data Date of Consult: 08/06/23 HPI Narrative Reason for Consultation: medial management HPI Narrative: KURTIS CAT, is a 68 F with a PMH as outlined who was admitted to the service of orthopedic surger on 08/06/2023 for revision of left total knee arthroplasty. She had the initial surgery done at an outside hospital in February 2017. She subsequently developed knee pain with instability of the left knee. She had had falls due to the knee pain. She was therefore admitted for revision left total knee arthroplasty. Patient had a surgery on 08/06/2023. Hospitalist service was consulted for medical management. Patient was seen and examined after surgery. She had no active complaints. Pain was fairly well-controlled. Review of symptoms otherwise negative. Her medical history significant for hypertension and GERD as well as irritable bowel syndrome and anxiety disorder. [facility] Medical History (Updated 08/06/23 @ 14:[address] Ivette Ya MD) Abdominal pain Allergic rhinitis Anxiety Anxiety disorder Arthritis Chronic cholecystitis with calculus Depression High cholesterol History of IBS History of steroid therapy History of stress test History of trigger finger Hypertension IBS (irritable bowel syndrome) Leg cramps Restless legs Thyroid disease Wears glasses Home Medications amlodipine 10 mg tablet 10 mg PO QDAY HYPERTENSION 06/03/17 [History Last Taken 08/06/23 04:40] dicyclomine 20 mg tablet 20 mg PO Q6H PRN cramps 06/03/17 [History Last Taken 08/05/23] lorazepam 1 mg tablet 1 mg PO Q8H PRN Anxiety 06/03/17 [History Last Taken 08/05/23] omeprazole 40 mg capsule,delayed release 40 mg PO DAILY GERD 06/03/17 [History Last Taken 08/06/23 04:40] paroxetine HCl 30 mg tablet 30 mg PO DAILY ANXIETY/DEPRESSION 06/03/17 [History Last Taken 08/06/23 04:40] venlafaxine 75 mg capsule,extended release 24 hr 75 mg PO DAILY DEPRESSION 06/03/17 [History Last Taken 08/05/23] Lactobacillus acidophilus (Acidophilus capsule) 1 ea PO DAILY SUPPLEMENT 06/12/17 [History Last Taken 08/03/23] Vitamin D3 1,000 mg PO DAILY SUPPLEMENT 06/12/17 [History Last Taken 08/03/23] coenzyme Q10 200 mg-vitamin E 20 unit capsule 1 ea PO DAILY SUPPLEMENT 06/12/17 [History Last Taken 08/05/23] cyanocobalamin (vitamin B-12) 2,500 mcg tablet 2,500 mcg PO DAILY SUPPLEMENT 06/12/17 [History Last Taken 08/03/23] folic acid 1 mg tablet 1 mg PO DAILY@0800 SUPPLEMENT 06/12/17 [History Last Taken 08/05/23] glucosamine HCl 500 mg-msm 83 mg-chondroitin 400 mg tablet 1 ea PO DAILY SUPPLEMENT 06/12/17 [History Last Taken 08/03/23] lecithin 1,200 mg capsule 1,200 mg PO DAILY SUPPLEMENT 06/12/17 [History Last Taken 08/03/23] magnesium oxide 400 mg PO DAILY SUPPLEMENT 06/12/17 [History Last Taken 08/03/23] potassium 99 mg tablet 99 mg PO DAILY SUPPLEMENT 06/12/17 [History Last Taken 08/03/23] pyridoxine (vitamin B6) 50 mg tablet 100 mg PO DAILY SUPPLEMENT 06/12/17 [History Last Taken 08/03/23] vitamin A 2,400 mcg capsule 8,000 unit PO DAILY SUPPLEMENT 06/12/17 [History Last Taken 08/03/23] vitamin E 268 mg (400 unit) capsule 400 unit PO DAILY SUPPLEMENT 06/12/17 [History Last Taken 08/03/23] zinc 50 mg tablet 50 mg PO DAILY SUPPLEMENT 06/12/17 [History Last Taken 08/03/23] levothyroxine 50 mcg capsule 75 mcg PO DAILY HYPOTHYROID 09/19/22 [History Last Taken 08/06/23 04:40] azelastine 137 mcg (0.1 %) nasal spray aerosol 2 spray intranasal BID CONGESTION #30 mL 12/30/22 [Rx Last Taken 08/05/23] fluticasone propionate 50 mcg/actuation nasal spray,suspension (Flonase Allergy Relief) 2 spray intranasal QDAY ALLERGIES #16 grams 02/25/23 [Rx Last Taken 08/05/23] fenofibrate 160 mg tablet 160 mg PO QHS CHOLESTEROL 07/17/23 [History Last Taken 08/05/23] Allergy/AdvReac Type Severity Reaction Status Date / Time codeine Allergy Unknown Upset Verified 08/06/23 05:54 Stomach oxycodone [From Percocet] Allergy Unknown Upset Verified 08/06/23 05:54 Stomach Vsdufta-TWG-[id number] Reductase Allergy Unknown Unknown Verified 08/06/23 05:54 Inhibitor [Zbfebym-Qzf-Hhl Reductase Inhibitor] Family History (Reviewed 09/19/22 @ 09:29 by Katie Darden TRADING FLOOR OPERATOR, TRADING FLOOR OPERATOR-C) Mother Arthritis Cancer Father Diabetes Heart disease Hypertension CVA (cerebral vascular accident) Sister Hypertension Heart disease Surgical History (Updated 07/17/23 @ 13:55 by Jordyn Brooks) H/O thumb surgery History of cholecystectomy History of colonoscopy History of esophagogastroduodenoscopy (EGD) S/P carpal tunnel release S/P hernia repair S/P knee replacement S/P knee surgery S/P tonsillectomy S/P tubal ligation Social History (Reviewed 09/19/22 @ 09:29 by Katie Darden TRADING FLOOR OPERATOR, TRADING FLOOR OPERATOR-C) Smoking Status: Never smoker second hand exposure: No alcohol intake: current alcohol intake frequency: holidays/special occasions only substance use type: does not use caffeine: No what type of physical activity do you participate in: none frequency: does not exercise seatbelt use: always ROS Constitutional Constitutional: Reports malaise and weakness; Denies anorexia, chills, fatigue or fever(s) Eyes Eyes: Denies change in vision ENT HEENT: Denies dysphagia or headache(s) Cardiovascular Cardiovascular: Denies chest pain, dyspnea on exertion, edema, lightheadedness, orthopnea, palpitations, paroxysmal nocturnal dyspnea, rapid heart rate or syncope Respiratory/Chest Respiratory/Chest: Denies cough, dyspnea, productive cough, shortness of breath at rest, shortness of breath with exertion or wheezing Gastrointestinal Gastrointestinal: Denies abdominal pain, constipation, diarrhea or nausea Musculoskeletal Musculoskeletal: Reports joint pain Neurologic Neurologic: Denies confusion, dizziness, focal weakness, headache(s), numbness or paresthesias Psychiatric Psychiatric: Denies anxiety or depression Endocrine Endocrinology: Denies change in body appearance Hematologic/Lymphatic Hematologic/Lymphatic: Denies anemia Physical Exam Const alert, oriented x3 and no apparent distress General Appearance: cooperative HEENT normocephalic, head/scalp atraumatic, hearing grossly normal bilaterally, moist oral mucous membranes and oropharynx normal Mouth: oral and palatal mucosa normal Eyes PERRL, EOMs intact bilaterally and conjunctivae normal Neck no lymphadenopathy, supple and no JVD Resp normal respiratory effort, no retractions, no use of accessory muscles and clear to auscultation bilaterally Cardio regular rate, regular rhythm, S1 normal heart sound, S2 normal heart sound and no murmurs GI normal to inspection, nondistended, normoactive bowel sounds, soft to palpation, non-tender and non-distended Extremity Extremity Narrative: left knee wrapped in bandage; brace in place Neuro oriented x3 and CN's II-XII intact bilaterally Sensorium / Orientation: awake and alert Psych affect normal Lab / Micro Data 07/22/23 10:05 07/22/23 10:05 Labs: Laboratory Results - last 24 hr 08/06/23 05:53: POC Glucose 135 H Imaging Radiology Impression Knee X-Ray 08/06/23 11:15 IMPRESSION: Status post total knee replacement. There is good alignment. Postoperative soft tissue changes. Electronically Signed: Eriberto Blanco MD at 12:26 EDT , Charges/Coding Visit Charges Inpatient E&M: 76900 Subs Hosp L2
[2023-08-06] MEDS: Cefazolin 1 GM/50 ML BAG IV ×2 (17:05→23:23)
[2023-08-06] MEDS: traMADol 50 MG Tablet PO (19:48)
[2023-08-06] MEDS: Fenofibrate 145 MG Tablet PO (20:47)
[2023-08-06] MEDS: Senna/Docusate Sodium 1 Tablet 2 TABLET PO (20:47)
[2023-08-06] MEDS: Aspirin 81 MG TAB.CHEW PO (20:48)
[2023-08-06] MEDS: Azelastine HCl NASAL.SRY 2 SPRAY NASAL (20:48)
[2023-08-06] MEDS: Doxycycline 100 MG CAPSULE PO (20:50)
[2023-08-07 00:13] VITALS: BP 118/62; PULSE 96; RESP 17; TEMP 36.4; O2SAT 97
[2023-08-07 04:40] VITALS: BP 137/80; PULSE 97; RESP 18; TEMP 36.6; O2SAT 98
[2023-08-07] MEDS: Levothyroxine 75 MCG Tablet PO (04:50)
[2023-08-07] MEDS: Acetaminophen 500 MG Tablet 1000 MG PO (04:51)
[2023-08-07] MEDS: traMADol 50 MG Tablet PO (04:53)
[2023-08-07] MEDS: Famotidine 20 MG Tablet PO (04:57)
[2023-08-07 07:28] LABS: Hematocrit 37.5 % (37-47); Hemoglobin 12.2 g/dL (12.0-15.0); Mean Corp Hgb Conc 32.5 g/dL (32-36); Mean Corpuscular Hgb 29.6 pg (27.0-32.0); Mean Platelet Vol. 9.2 fl (6.2-12.0); Platelet Count 305 K/mm3 (150-450); RBC Distribution Width CV 12.7 % (11.6-14.6); RBC Distribution Width SD 41.9 fl (35.1-43.9); Red Blood Count 4.12 M/mm3 (4.2-5.4); White Blood Count 11.7 K/mm3 (4.4-11.0)
[2023-08-07 08:11] LABS: Anion Gap 5 (5-15); BUN 15 mg/dL (7-18); BUN/Creat Ratio 16.7 RATIO (10-20); Calcium,Total 9.4 mg/dL (8.5-10.1); Chloride 108 mmol/L (98-107); EST Glomerular Filtration Rate 66 mL/min (>60); Est Glom Filt Rate - Afr Amer 80 mL/min (>60); Estimated Creatinine Clearance 57.06 ml/min; Glucose 149 mg/dL (74-106); Potassium 3.7 mmol/L (3.5-5.1); Sodium Level 141 mmol/L (136-145)
[2023-08-07 08:38] VITALS: BP 138/82; PULSE 92; RESP 18; TEMP 36.7; TEMP 36.8; O2SAT 98
[2023-08-07] MEDS: Aspirin 81 MG TAB.CHEW PO ×2 (08:46→16:41)
[2023-08-07] MEDS: Folic Acid 1 MG Tablet PO (08:46)
[2023-08-07] MEDS: Azelastine HCl NASAL.SRY 2 SPRAY NASAL (08:46)
[2023-08-07] MEDS: Ensure Surgery 237 ML LIQUID PO ×2 (08:50→12:26)
[2023-08-07] MEDS: Sucralfate 1 GM Tablet PO ×2 (11:00→16:41)
[2023-08-07] MEDS: Pantoprazole Sodium 40 MG Tablet PO (11:01)
[2023-08-07] MEDS: Fluticasone 0.05% 1 SPRAY NASAL.SRY 2 SPRAY NASAL (11:02)
[2023-08-07] MEDS: Senna/Docusate Sodium 1 Tablet 2 TABLET PO (11:02)
[2023-08-07] MEDS: Magnesium Chloride 64 MG Delay Rel.Tablet 128 MG PO (11:02)
[2023-08-07] MEDS: Lactobacillis Acidophilus 1 CAP PO (11:02)
[2023-08-07] MEDS: Venlafaxine XR 75 MG Capsule PO (11:02)
[2023-08-07] MEDS: Pyridoxine HCl 50 MG Tablet 100 MG PO (11:03)
[2023-08-07] MEDS: amLODIPine 10 MG Tablet PO (11:03)
[2023-08-07] MEDS: Cholecalciferol (VIT D3) 25 MCG TABLET (1,000 UNITS) PO (11:03)
[2023-08-07] MEDS: PARoxetine 10 MG Tablet 30 MG PO (11:04)
--- NOTE | 2023-08-07 11:36 | PCM.PN.ORT ---
Subjective Subjective The patient was sitting in bed upon examination. Patient denies any chest pain, shortness of breath, dizziness, lightheadedness, nausea or vomiting, or calf pain. Patient states she does not feel the tramadol is providing enough relief. She has had [place] in the past. She has also had oxycodone that did cause upset stomach. She states if she takes sulcralfate she is able to tolerate the other medications. Preoperatively she did have some kidney disease that she states she has never had before. Her postoperative lab work shows kidney function doing well. We are going to add in temporary nonsteroidal anti-inflammatory for the next 2 weeks only. Patient's microbiology results are currently without any growth. She had a negative preoperative workup for infection. Patient did well with therapy this morning. She would like to try to go home this afternoon as long as her pain is adequately controlled. Objective Data Objective Data Vital Signs: Vital Signs Temp Pulse Resp BP Pulse Ox O2 Del Method O2 Flow Rate 98.0 F 92 18 138/82 H 98 Room Air 4 08/07/23 08:38 08/07/23 08:38 08/07/23 08:38 08/07/23 08:38 08/07/23 08:38 08/07/23 08:38 08/06/23 12:59 Oxygen Flow Rate (L/min) 4 Oxygen Delivery Method Room Air Weight: 78.018 kg Body Mass Index (BMI) 31.4 Intake & Output: Intake and Output for Last 24 Hours 08/05/23 08/06/23 08/07/23 23:59 23:59 23:59 Intake Total 4532 / 4532 800 / 800 Output Total 1600 / 1600 Balance 4532 / 4532 -800 / -800 Lab / Micro Data 08/07/23 06:09 08/07/23 06:09 Labs: Laboratory Results - last 24 hr 08/07/23 06:09: WBC 11.7 H, RBC 4.12 L, Hgb 12.2, Hct 37.5, MCV 91.0, MCH 29.6, MCHC 32.5, RDW Std Deviation 41.9, RDW Coeff of Ritu 12.7, Plt Count 305, MPV 9.2, Sodium 141, Potassium 3.7, Chloride 108 H, Carbon Dioxide 28.0, Anion Gap 5, BUN 15, Creatinine 0.90, Estim Creat Clear Calc 57.06, Est GFR (MDRD) Af Amer 80, Est GFR (MDRD) Non-Af 66, BUN/Creatinine Ratio 16.7, Glucose 149 H, Calcium 9.4 Micro: Microbiology 08/06/23 Unknown Tissue - Knee Gram Stain - Final 08/06/23 Unknown Tissue - Knee Gram Stain - Final 08/06/23 Unknown Tissue - Bursa Gram Stain - Final 07/22/23 10:05 Swab (Method) Nasal Screen MRSA/MSSA - Final Radiography Diagnostic Testing: Radiology Impression Knee X-Ray 08/06/23 11:15 IMPRESSION: Status post total knee replacement. There is good alignment. Postoperative soft tissue changes. Electronically Signed: Eriberto Blanco MD at 12:26 EDT , Physical Exam Narrative Vital signs stable and afebrile. Patient is able to plantarflex and dorsiflex actively. Sensation is intact to light touch to saphenous, sural, superficial and deep peroneal, and tibial distribution. Dressing is clean dry and intact. Negative Homans bilaterally, negative signs and symptoms of DVT. Const alert, oriented x3 and no apparent distress Assessment & Plan Assessment/Plan (1) Status post revision of total replacement of left knee: PLAN: 1. S/P revision left total knee arthroplasty all components POD #1 2. Continue Pain Medications: Patient's pain was not adequately controlled on the tramadol. Patient did wish to try the hydrocodone/acetaminophen and she states if she is takes sucralfate this is helpful. Patient is aware that she should not be taking extra strength Tylenol in addition to the [place]. I did explain to her that we do not want her taking more than 3000 mg of Tylenol in a 24-hour period. We will also add in a temporary nonsteroidal anti-inflammatory meloxicam for the next 2 weeks only. Her kidney function today is doing well with postoperative lab work. I did advise her that after 2 weeks we do not recommend further anti-inflammatories and will need to discuss with her primary care physician. She voiced understanding. 3. DVT Prophylaxis: Take 81 mg aspirin twice daily for 4 weeks postoperatively for DVT prophylaxis. Patient denies past history of DVT or pulmonary embolism. 4. PT/OT: Weightbearing as tolerated with walker 5. H & H: 12.2/37.5, asymptomatic. Labs have been reviewed and stable 6. Reactive leukocytosis: 11.7, Afebrile. Patient did receive Decadron intraoperatively. No clinical signs of infection. 7. Currently on doxycycline for 2 weeks postoperatively. Microbiology wound and tissue specimens were reviewed in chart and there is currently no growth or organisms seen today. I discussed with the patient potential side effects of doxycycline including sensitivity to the sunlight and increased risk of skin burn. Recommend patient take appropriate precautions. Also recommend patient to take probiotic while on the antibiotic. Patient voiced understanding agreement. I did inform the patient that we will continue to monitor these and if any changes are needed we will contact her. 8. Continue postoperative medical management per medicine 9. Encouraged Incentive Spirometry 10. Postoperative constipation: Patient will continue on the senna postoperatively until her first bowel movement. Patient was advised that it can take 1-3 days for bowel movement to occur. If after day 3 she does not have a bowel movement she has been instructed to contact her office so an appropriate change can be made. She voiced understanding. 11. Disposition: Plan will be for probable discharge home this afternoon as long as patient's pain is adequately controlled, medically stable, and tolerating physical therapy. Patient would like her prescriptions E scribed to the [facility] in [facility]. She has outpatient physical therapy established. She will follow-up per postoperative instructions. Upon discharge if there are any concerns or questions she is to contact our office. I have reviewed the [place] Automated Rx Reporting System (OARRS) report for this patient for refill pattern and other prescriber involvement as part of the appropriate surveillance for the provision of acute and chronic controlled medications. The report was requested and reviewed on the date of this entry and was considered in the prescribing process. This dictation was created using voice recognition software. Phonetic and/or grammatical errors may exist.
--- NOTE | 2023-08-07 11:45 | DCINST_ITS ---
Discharge Instructions Diet Discharge Diet: No restrictions Activity Discharge Activity: May Not Drive (No driving until you can walk 100 feet with the use of a cane and off all narcotics) May shower in (days): 1 (Please turn dressing away from water. Okay to get wet as long as dressing is intact to skin.) Ice area for (Minutes): 20 (Every 1-2 hours while awake. Please place barrier between the skin and ice pack.) Weight Bearing Status: Weight bearing as tolerated Keep extremity elevated above heart level: Operative Extremity Dressing / Incision Call your doctor if your incision/area has: Continuous Slow Oozing, Sudden Increased Bleeding, Increased Pain/ Swelling, Increased Redness and Foul Smelling Discharge Call your doctor if you observe: Fever of 101 or Higher, Coldness, Increased Pain, Numbness or Tingling, Change in Color, Shortness of breath, Chest pain, Calf discomfort and Uncontrolled pain Remove Dressing in: 4 days (Okay to remove dressing on August 11, 2023) Additional Dressing/Incision Instructions:: Follow [facility] Post-op Instructions. Once postoperative dressing has been removed only use gentle soap and water over the incision. Do not use any ointments, Neosporin, salves, alcohol pads over the incision for 6 weeks postoperatively. Do not submerge underwater for 6 weeks postoperatively. Continue with PAPA hose/elastic stockings for 2 weeks postoperatively. May remove at nighttime but needs to be placed back on the leg during the day. Do NOT use alcohol with narcotic pain medication. Do NOT make important decisions while taking narcotic medication. If you have problems with taking your medication (rash, itching, nausea, etc.) call the office at once. Follow Up Care Test Results: Test results from this visit will be discussed in further detail at your follow- up appointment, if applicable. Discharge Plan Admission Admit Date/Time: 08/06/23 05:24 Attending Provider: Jose R Skelton Primary Care Provider: Skylre Amador Consulting Providers: Ivette Ya; Gissel Fried Discharge Orders/Prescriptions Prescriptions: New aspirin 81 mg tablet,delayed release (DR/EC) 81 mg PO BIDCM 30 Days Qty: 60 0RF Rx Instructions: Take 81 mg aspirin twice daily for 4 weeks postoperatively for DVT prophylaxis. hydrocodone-acetaminophen 5-325 mg Tablet 1 - 2 tab PO Q6H PRN PRN (Reason: as needed pain) 7 Days Qty: 42 0RF Rx Instructions: Take 1-2 tablets by mouth every 6 hours as needed for pain doxycycline monohydrate 100 mg Capsule 100 mg PO BID 14 Days Qty: 28 0RF sennosides-docusate sodium [Stool Softener-Stimulant Laxat] 8.6-50 mg Tablet 2 tab PO BID 3 Days Qty: 12 0RF Rx Instructions: Take until first bowel movement, then as needed meloxicam 7.5 mg Tablet 7.5 mg PO BID 14 Days Qty: 28 0RF Rx Instructions: Do not take any other nonsteroidal anti-inflammatories while using meloxicam/Mobic. Continued venlafaxine 75 mg capsule,extended release 24hr 75 mg PO DAILY omeprazole 40 mg capsule,delayed release(DR/EC) 40 mg PO DAILY dicyclomine 20 mg tablet 20 mg PO Q6H PRN (Reason: cramps) lorazepam 1 mg tablet 1 mg PO Q8H PRN (Reason: Anxiety) paroxetine HCl 30 mg tablet 30 mg PO DAILY amlodipine 10 mg tablet 10 mg PO QDAY levothyroxine 50 mcg capsule 75 mcg PO DAILY vitamin A 8,000 UNIT capsule 8,000 unit PO DAILY lecithin 1,200 MG capsule 1,200 mg PO DAILY potassium 99 MG tablet 99 mg PO DAILY pyridoxine (vitamin B6) 50 MG tablet 100 mg PO DAILY folic acid 1 MG tablet 1 mg PO DAILY@0800 zinc 50 MG tablet 50 mg PO DAILY Acidophilus 1 EACH capsule 1 ea PO DAILY vitamin E 400 UNIT capsule 400 unit PO DAILY coenzyme [id number] 1 EACH capsule 1 ea PO DAILY cyanocobalamin (vitamin B-12) 2,500 MCG tablet 2,500 mcg PO DAILY magnesium oxide 400 MG tablet 400 mg PO DAILY Vitamin D3 1,000 mg PO DAILY fenofibrate 160 mg tablet 160 mg PO QHS sucralfate 1 gram tablet 1 g PO 4X/DAY PRN PRN (Reason: upset stomach) dextromethorphan-guaifenesin [Mucinex DM] 60-1,200 mg tablet extended release 12 hr 1 tab PO DAILY PRN (Reason: sinus congestion) azelastine 137 mcg (0.1 %) aerosol,spray 2 spray intranasal BID Qty: 30 3RF Rx Instructions: administer into each nostril fluticasone propionate [Flonase Allergy Relief] 50 mcg/actuation spray,suspension 2 spray intranasal QDAY Qty: 16 3RF Rx Instructions: administer into each nostril Held glucosamine [id number] 1 EACH tablet 1 ea PO DAILY Hold Instructions: Resume on 08/22/23. Other Ambulatory Orders: 12 Lead EKG (Routine) Timeframe: [id number] Location: None Selected Ordered By: Dr. Jose R Skelton Referrals / Follow Up: Physical,Therapy [Other] - 08/11/23 9:15 am Skyler Amador MD [Primary Care Provider] - Emily Lizama PA [Physician Sap Senior Developer] - 08/21/23 11:00 am Disposition Disposition (needs filled in before D/C Order can be placed): Home, Self Care
--- NOTE | 2023-08-07 11:52 | CASEMGMT ---
Social Work- SW met with pt to discuss advance directives.? Pt confirms she has completed a living will and health care POA naming Leanne Frazier, daughter, and spouse, Aristeo.? Pt notified that documents are not on file at [facility] and SW requested they be brought in for scanning into the EMR.?Pt agreeable to having documents brought in. ANDREW Liao
[2023-08-07] MEDS: HYDROcodone Bitartrate/Apap 5/325 Tablet PO ×2 (12:22→14:41)
[2023-08-07] MEDS: Doxycycline 100 MG CAPSULE PO (12:22)
[2023-08-07] MEDS: guaiFENesin/D-Methorphan TAB.SR.12H 1 TABLET PO (12:23)
[2023-08-07] MEDS: Meloxicam 7.5 MG Tablet PO (12:23)
--- NOTE | 2023-08-07 12:40 | CASEMGMT ---
ZEYAD SOMMER Assessment: Face to Face with pt for initial transition planning/care coordination assessment. ZEYAD SOMMER introduced self and role at [facility], pt voices understanding and consents to assessment. Pt is A&O x4 and answers all questions appropriately at this time. Pt lying in bed in no distress. Care providers, pharmacy, and demographics verified/updated. Admitting Dx: TKR, revision PCP:Perry Specialists:Costa, hector; Marian, DESEAN Preferred Pharmacy: [facility] Insurance: [facility], [place] [employer] Prescription Benefit: yes LNOK: Aristeo Boucher, Living Arrangements: Pt lives with in a single story home with 2 steps to enter. Pt reports she is typically I in ADL's and denies concerns at home. Pt is able to assist as needed. Transportation: Pt drives self and denies concerns with transportation. Pt will transport pt until she can drive again. DME:shower chair, walker, crutches HHC/SNF: Pt has had HHC in the past but cannot recall the name of it. Pt denies SNF stays. Pt states no concerns with going home at time of dc. Pt has outpt therapy set up for August 10. Pt states no further concerns/needs. CM to follow. Advised pt to ask CM if any further question/concerns/needs arise, voices understanding. Pt Goal: Home with outpt therapy already set up Plan: Home with outpt therapy already set up Antionette JEFFERS CM
[2023-08-07 14:37] VITALS: BP 159/78; PULSE 95; RESP 18; TEMP 36.6; O2SAT 96
[2023-08-07 14:38] VITALS: BP 159/78; PULSE 95; RESP 18; TEMP 36.6; O2SAT 98
[2023-08-07 18:11] VITALS: BP 168/79; PULSE 85; RESP 18; TEMP 36.7; O2SAT 96
== END 2023-08-07 18:35 | disposition home or self-care (01) | DRG 468 ==
LOC: ACINP 05:25 → MS3 11:49
PROVIDERS: Anesthesiology; Admitting Provider Specialist; PCP Family Medicine; Referring Provider Specialist; Visit Provider Specialist
DX: T84.033A Mechanical loosening of internal left knee prosthetic joint, initial encounter (principal); T84.84XA Pain due to internal orthopedic prosthetic devices, implants and grafts, initial encounter; E03.9 Hypothyroidism, unspecified; I12.9 Hypertensive chronic kidney disease with stage 1 through stage 4 chronic kidney disease, or unspecified chronic kidney disease; F32.A Depression, unspecified; M17.11 Unilateral primary osteoarthritis, right knee; M25.362 Other instability, left knee; F41.9 Anxiety disorder, unspecified; E78.00 Pure hypercholesterolemia, unspecified; K21.9 Gastro-esophageal reflux disease without esophagitis; K58.9 Irritable bowel syndrome, unspecified; N18.2 Chronic kidney disease, stage 2 (mild); E66.9 Obesity, unspecified; Y79.2 Prosthetic and other implants, materials and accessory orthopedic devices associated with adverse incidents; R73.03 Prediabetes; Z68.30 Body mass index [BMI] 30.0-30.9, adult; Z79.82 Long term (current) use of aspirin; Z79.899 Other long term (current) drug therapy; Z96.652 Presence of left artificial knee joint
CPT/HCPCS: 36415; 73560; 80048; 82040; 82962; 83735; 84443; 85025; 85027; 87015; 87070; 87075; 87077; 87081; 87102; 87116; 87176; 87184; 87186; 87205; 87206; 88300; 93005; 94668; 97110; 97116; 97162; 97166; 97535; 99252; C1776; J7120; G0463; J2405; J3475

== ENCOUNTER 2024-09-17 05:39 | Day surgery (SDC) | payer MEDICARE, OTHER, SELFPAY ==
[2024-09-17] VITALS (10 sets, daily range): BP systolic 134–160; BP diastolic 64–86; PULSE 74–100; RESP 16–18; TEMP 36.3–36.7; O2SAT 93–98; BMI 32.5
[2024-09-17] MEDS: Lactated Ringers 1,000 ML 15 ML IV (06:17)
--- NOTE | 2024-09-17 06:35 | PRE.ANES_ITS ---
ASA Classification* ASA Classification ASA Classification: 2 Assessment & Plan Anesthesia* Anesthesia Assessment Anesthesia Assessment: Discussed sedation and/or anesthesia options, risks, benefits, and alternatives with patient/parents/legal guardian/POA. Questions invited. The patient/parents/legal guardian/POA seems to understand and agrees to proceed with anesthesia plan. Reviewed the physical assessment, medical history, allergy history and patient home medications list prior to surgery/procedure/anesthetic and documented any changes. Performed airway and anesthesia risk assessments. Anesthesia Type Anesthesia Type: MAC History Source History Obtained from:: Patient and Chart Anesthesia Focused Assessment* Temperature: 98.1 F Pulse Rate: 74 Blood Pressure: 160/64 Respiratory Rate: 18 Pulse Ox: 98 Oxygen Delivery Method: Room Air Airway Assessment Mouth opens: >3 cm Mallampati Score: III Teeth Condition: Intact Neck Range of motion (ROM): Full ROM Labs Anesthesia Preop lab: CBC WBC 11.7 K/mm3 (4.4-11.0) H 08/07/23 06: 4 RBC 4.12 M/mm3 (4.2-5.4) L 08/07/23 06:08/07/23 Hgb 12.2 g/dL (12.0-15.0) 08/07/23 06:08/07/23 Hct 37.5 % (37-47) 08/07/23 06:08/07/23 Plt Count 305 K/mm3 (150-450) 08/07/23 06:08/07/23 CHEMISTRY Potassium 3.7 mmol/L (3.5-5.1) 08/07/23 06:08/07/23 Sodium 141 mmol/L (136-145) 08/07/23 06:08/07/23 Magnesium 2.4 mg/dL (1.6-2.6) 07/22/23 10:05 07/22/23 BUN 15 mg/dL (7-18) 08/07/23 06:08/07/23 Creatinine 0.90 mg/dL (0.55-1.02) 08/07/23 06:08/07/23 Glucose 149 mg/dL (74-106) H 08/07/23 06:08/07/23 POC Glucose 135 mg/dL (74-106) H 08/06/23 05:53 08/06/23 TSH 3.20 uIU/mL (0.358-3.74) 07/22/23 10:05 COAG Pre-Assessment Diagnosis/Proposed Procedure Planned Operative Procedure(s): EXCISION LIPOMA RIGHT FLANK Anesthesia History Anesthesia History - job analysis manager: Anesthesia History - job analysis manager Hx Hospitalization No 09/13/24 13:53 Any Problems With Anesthesia No 09/13/24 13:53 Cholinesterase deficiency No 09/13/24 13:53 You/Your Family Experience No 09/13/24 13:53 fever (hyperthermia) with Relationship Recent Exposure to Contagious No 09/17/24 06:06 Disease Does patient have nerve No 09/13/24 13:53 stimulator Patient instructed to have device shut off --Does patient have Pacemaker No 09/17/24 06:07 or ICD? When Was Last Pacemaker Check QUESTION #4 FULL TEXT: You/Your Family Experience fever (hyperthermia) with Anesthesia Last Oral Intake Last Oral intake: Last Oral Intake NPO since 00:00 09/17/24 06:07 Meds taken in AM with sips of Yes 09/17/24 06:07 water? Meds patient instructed to take am of surgery Any additional information?: Yes Meds taken in AM with sips of water?: Yes PONV PONV - job analysis manager: PONV - job analysis manager Female Yes 09/13/24 13:53 HX of Motion Sickness No 09/13/24 13:53 HX of N/V After Surgery No 09/13/24 13:53 Non-Smoker No 09/13/24 13:53 Duration of Surgery greater No 09/13/24 13:53 than 60 minutes Number of Risk Factors 1 09/13/24 13:53 PONV Score Low Risk 09/13/24 13:53 Height & Weight Height & Weight: Anesthesia: Height & Weight Height 5 ft 2 in 09/17/24 06:07 Weight: 80.558 kg 09/17/24 06:07 Body Mass Index (BMI) 32.5 09/17/24 06:07 Respiratory Assessment Respiratory Assessment - job analysis manager: Respiratory Tract Infection Hx - job analysis manager Hx Respiratory Tract Infection No 09/13/24 13:53 STOP Sleep Apnea STOP Sleep Apnea - job analysis manager: STOP Sleep Apnea - job analysis manager Hx Hypertension Yes: CONTROLLED WITH MED 09/13/24 13:53 Hx Sleep Apnea No 09/13/24 13:53 CPAP No 09/13/24 13:53 BIPAP Do you snore loudly (louder No 09/13/24 13:53 than talking or can be heard Do you often feel tired/ No 09/13/24 13:53 fatigued/ sleepy during daytime? Has anyone observed you stop No 09/13/24 13:53 breathing during sleep? STOP Results Negative 09/13/24 13:53 QUESTION #5 FULL TEXT : Do you snore loudly (louder than talking or can be heard through closed doors)? Tobacco Use History Tobacco Use History - job analysis manager: Tobacco Use History - job analysis manager Tobacco Use Smoking Status Never smoker 09/13/24 13:53 Hx Tobacco Use No 09/13/24 13:53 Years Smoking Packs Smoked per Day Smoking Cessation Date was within the last 15 years Hx Smoking Cessation Date Hx Smoking Cessation Counseling Hematologic Medial History Hematologic Hx - job analysis manager: Hematologic Medical Hx - knuckler Hx of Blood Transfusion No 09/13/24 13:53 Hx of Transfusion in last 3 No 09/13/24 13:53 Months Date of Last Transfusion (if within last 3 months) Ever experience any problems No 09/13/24 13:53 with transfusion(s)? Specify any problems Hx of Preganancy in last 3 No 09/13/24 13:53 Months Nurse Filling Out Transfusion DSCHRIBER 09/13/24 13:53 & Questions: Date: 09/13/24 09/13/24 13:53 Time: 13:54 09/13/24 13:53 Patient unable to answer at this time (ie. confused, unrespo /Reproduction History /Reproductive History - job analysis manager: /Reproductive Hx- job analysis manager Hx Now Gestational Age (in weeks): EDC: Hx Hx Para Hx Section SAB No 09/13/24 13:53 Active Medications Active Medications: Current Medications Generic Name Dose Route Start Last Admin Trade Name Freq PRN Reason Stop Dose Admin Cefazolin Sodium 2 gm/ Sodium 110 mls @ 200 mls/hr 09/17/24 07:30 Chloride IV 09/17/24 08:02 INTRAOP ONE Lactated Ringer's 1,000 mls @ 15 mls/hr 09/17/24 05:45 09/17/24 06:17 IV 15 mls/hr .Q48H ROSENDO Administration PFSH Medical History Alcohol use Gastric reflux Wears glasses Depression Anxiety Thyroid disease Arthritis High cholesterol Restless legs History of IBS Leg cramps History of stress test History of trigger finger Chronic cholecystitis with calculus Abdominal pain Anxiety disorder Hypertension IBS (irritable bowel syndrome) Allergic rhinitis Home Medications ?Medication ?Instructions ?Recorded ?Last Taken ?Type amlodipine 10 mg tablet 10 mg PO QDAY HYPERTENSION 0 06/03/17 09/16/24 History dicyclomine 20 mg tablet 20 mg PO Q6H PRN cramps 09/1509/16/24 History lorazepam 1 mg tablet 1 mg PO QHS PRN Anxiety 09/1509/16/24 History paroxetine HCl 30 mg tablet 30 mg PO DAILY ANXIETY/DEP RESSION 06/03/17 09/16/24 History venlafaxine 75 mg capsule,extended 75 mg PO DAILY DEPR ESSION 06/03/17 09/16/24 History release 24 hr Vitamin D3 1,000 mg PO DAILY SUPPLEMENT 06/12/17 09/16/24 History cyanocobalamin (vitamin B-12) 2,500 mcg PO DAILY SUPPL EMENT 06/12/17 09/16/24 History 2,500 mcg tablet magnesium oxide 400 mg PO DAILY SUPPLEMENT 0 06/12/17 09/16/24 History vitamin A 2,400 mcg capsule 8,000 unit PO DAILY SUPPLE MENT 06/12/17 09/16/24 History vitamin E 268 mg (400 unit) capsule 400 unit PO DAILY SUPPLEMENT 06/12/17 09/16/24 History zinc 50 mg tablet 50 mg PO DAILY SUPPLEMENT 09/16/24 History fluticasone propionate 50 2 spray intranasal QDAY ESTHER RGIES 02/25/23 09/16/24 Rx mcg/actuation nasal #16 grams spray,suspension (Flonase Allergy Relief) fenofibrate 160 mg tablet 160 mg PO QHS CHOLESTEROL 09/16/24 History sucralfate 1 gram tablet 1 g PO 4X/DAY PRN PRN upset stomach 08/07/23 09/16/24 History levothyroxine 88 mcg tablet 88 mcg PO DAILY 09/13/24 0 09/17/24 04:30 History omeprazole 40 mg capsule,delayed 40 mg PO DAILY 09/16/24 History release Allergy/AdvReac Type Severity Reaction Status Date / Time Sulfa (Sulfonamide Allergy Intermediate Nausea/Vom/ Verified 09/17/24 06:03 Antibiotics) Diarrhea codeine Allergy Unknown Upset Verified 09/17/24 06:03 Stomach oxycodone (From Percocet) Allergy Unknown Upset Verified 09/17/24 06:03 Stomach Ofvhxmy-VDJ-AlV Reductase Allergy Unknown Unknown Verified 09/17/24 06:03 Inhibitor (Seivmhe-Mgp-Jsz Reductase Inhibitor) Family History Mother Arthritis Cancer Father Diabetes Heart disease Hypertension CVA (cerebral vascular accident) Sister Hypertension Heart disease Aunt Breast cancer Surgical History History of colonoscopy History of esophagogastroduodenoscopy (EGD) History of cholecystectomy S/P knee replacement S/P knee surgery H/O thumb surgery S/P hernia repair S/P carpal tunnel release S/P tubal ligation S/P tonsillectomy Social History Smoking Status: Never smoker second hand exposure: No alcohol intake: current alcohol intake frequency: holidays/special occasions only substance use type: does not use caffeine: No what type of physical activity do you participate in: none frequency: does not exercise seatbelt use: always Review of Systems (Anesthesia) ROS Narrative System reviewed and no additional complaints, except as documented.
--- NOTE | 2024-09-17 07:18 | PCM.HP.BLA ---
History and Physical Date of Admission: 09/17/24 Date of Service: 09/09/24 MR#: [id number] Acct: [id number] Name: KURTIS CAT Rep #: [id number] : 1955 Provider: Dr. Rohini Menendez MD Age/Sex: 69/F Location: [facility] Status: Signed Intake Vital Signs 08/06/2411:43 09/09/2514:13 Height 5 ft 2 in 5 ft 2 in Weight: 179 lb BMI 32.7 BP 157/82 H Blood Pressure Location Rt brachial Position Sitting Respiration 17 Pulse 73 Pulse Source Monitor Pulse Oximetry (%) 93 Oxygen Delivery Method room air Intake Visit Reasons: LIPOMA ON BACK Chief Complaint: lipoma on back Is patient in pain?: No Allergies Sulfa (Sulfonamide Antibiotics) Allergy (Intermediate, Verified 09/09/24 15:14) Nausea/Vom/Diarrheacodeine Allergy (Unknown, Verified 09/09/24 15:14) Upset Stomachoxycodone (From Percocet) Allergy (Unknown, Verified 09/09/24 15:14) Upset XdxmudcRjismqt-RJW-KqM Reductase Inhibitor (Uwdshri-Hnp-Unn Reductase Inhibitor) Allergy (Unknown, Verified 09/09/24 15:14) Unknown Medications ?Medication ?Instructions ?Recorded ?Confirmed ?Type amlodipine 10 mg tablet 10 mg PO QDAY HYPERTENSION 06/03/17 09/09/24 History dicyclomine 20 mg tablet 20 mg PO Q6H PRN cramps 06/03/17 09/09/24 History lorazepam 1 mg tablet 1 mg PO Q8H PRN Anxiety 06/03/17 09/09/24 History paroxetine HCl 30 mg tablet 30 mg PO DAILY ANXIETY/DEPRESSION 06/03/17 09/09/24 History venlafaxine 75 mg capsule,extended 75 mg PO DAILY DEPRESSION 06/03/17 09/09/24 History release 24 hr Vitamin D3 1,000 mg PO DAILY SUPPLEMENT 06/12/17 09/09/24 History cyanocobalamin (vitamin B-12) 2,500 mcg PO DAILY SUPPLEMENT 06/12/17 09/09/24 History 2,500 mcg tablet magnesium oxide 400 mg PO DAILY SUPPLEMENT 06/12/17 09/09/24 History vitamin A 2,400 mcg capsule 8,000 unit PO DAILY SUPPLEMENT 06/12/17 09/09/24 History vitamin E 268 mg (400 unit) capsule 400 unit PO DAILY SUPPLEMENT 06/12/17 09/09/24 History zinc 50 mg tablet 50 mg PO DAILY SUPPLEMENT 06/12/17 09/09/24 History levothyroxine 50 mcg capsule 75 mcg PO DAILY HYPOTHYROID 09/19/22 09/09/24 History fluticasone propionate 50 2 spray intranasal QDAY ALLERGIES 02/25/23 09/09/24 Rx mcg/actuation nasal #16 grams spray,suspension (Flonase Allergy Relief) fenofibrate 160 mg tablet 160 mg PO QHS CHOLESTEROL 07/17/23 09/09/24 History sucralfate 1 gram tablet 1 g PO 4X/DAY PRN PRN upset stomach 08/07/23 09/09/24 History Have you fallen in the past year?: No PFSH Medical History (Updated 09/09/24 @ 15:11 by Elsie Juarez) Wears glasses Depression Anxiety History of steroid therapy Thyroid disease Arthritis High cholesterol Restless legs History of IBS Leg cramps History of stress test History of trigger finger Chronic cholecystitis with calculus Abdominal pain Anxiety disorder Hypertension IBS (irritable bowel syndrome) Allergic rhinitis Surgical History (Updated 08/15/23 @ 00:01 by Kisha Webb) History of colonoscopy History of esophagogastroduodenoscopy (EGD) History of cholecystectomy S/P knee replacement S/P knee surgery H/O thumb surgery S/P hernia repair S/P carpal tunnel release S/P tubal ligation S/P tonsillectomy Family History (Updated 09/09/24 @ 15:13 by Elsie Juarez) Mother Arthritis CancerFather Diabetes Heart disease Hypertension CVA (cerebral vascular accident)Sister Hypertension Heart diseaseAunt Breast cancer Social History (Reviewed 09/19/22 @ 09:29 by Katie Darden AIR CONDITIONING UNIT TESTER, AIR CONDITIONING UNIT TESTER-C) Smoking Status: Never smoker second hand exposure: No alcohol intake: current alcohol intake frequency: holidays/special occasions only substance use type: does not use caffeine: No what type of physical activity do you participate in: none frequency: does not exercise seatbelt use: always HPI HPI HPI: 69-year-old female presents due to right low back/flank lipoma. Patient states about 4 years ago she had this excised at [facility] states it has gotten a little bit larger and she does have pain with pressure. Patient is interested in having it excised. ROS General General: No weight change, appetite, fatigue, colon cancer or breast cancer HEENT HEENT: No difficulty swallowing, eye injury, eye surgery, swollen glands or hoarseness Endo Endocrine: Yes thyroid disease; No diabetes mellitus, thyroid cancer, Hair loss, heat intolerance or cold intolerance Skin Skin: No rash or changing moles Musc Musculoskeletal: Yes arthritis; No back problems, rheumatoid arthritis, gout or joint pain Cardio Cardiovascular: Yes high blood pressure; No murmur, pacemaker, heart disease, atrial fibrillation, heart attack, heart stent, palpitations, shortness of breath with exertion or chest pain Psych Psychiatric: No depression, anxiety or hearing voices Resp Respiratory: No shortness of breath, No sleep apnea, Yes cough, No COPD, No asthma, No emphysema and No wheezing Gastro Gastrointestinal: Yes abdominal pain, No nausea or vomiting, No diarrhea, Yes constipation, No blood in stool, Yes acid reflux, No hemorrhoids, No ulcers, No gallbladder problem and No black,tarry stools Additional Details: Has IBS Edwin Hematologic: No blood thinners, No blood disorders, No bleeding, No anemia and No blood clots Neuro Neurologic: No numbness and No tingling Exam Const General: cooperative, healthy appearing, comfortable and no acute distress [facility] Head: normocephalic and atraumatic Neck Neck: supple Resp Effort & Inspection: normal respiratory effort Cardio Rate: regular rate GI Inspection: non-distended Skin Other: Right low back/flank transverse incision well-healed underlying is about an 8 x 5 cm lipoma on exam Neuro General: CN's II-XI intact bilaterally Extrem General: normal to inspection Psych Mental Status: mental status grossly normal Attitude: cooperative Assessment and Plan Assessment and Plan (1) Lipoma of back: Status: Acute Plan Discussed with patient the plan for excision of right low back/flank lipoma under MAC anesthesia in the OR. Discussed risk including but not limited to bleeding, infection, recurrence. Patient no further questions time. Rohini Menendez M.D. Pager: [phone] [facility] [address] [place] [address], [facility], [address] [place] [address] Office: [phone] Coding Level of Care Code Off vis,new,level 3 Diagnoses Lipoma of back D17.1 Clinical Quality Measures Falls Risk Screening/Assistive Devices Have you fallen in the past year?: No 09/10/24 1424 <Electronically signed by Rohini Menendez MD> Date Rohini Menendez MD
[2024-09-17] MEDS: Cefazolin 2 GM in 0.9% Normal Saline (100mL Bag) 100 ML IV (07:30)
--- NOTE | 2024-09-17 07:30 | LIP_PTH ---
PATIENT: KURTIS CAT LOC: [facility] U#:[id number] AGE/SX: 69/F ROOM: RE09/17/[address]: Dr. Rohini Menendez MD : 1955 BED: DIS: 09/17/2024 SPEC #: [id number] RECD: 09/17/24 11:02 STATUS: SUSAN RERadha #: [id number] MANUEL: 09/17/24 07:[address]: Rohini Menendez DEPT: SURGICAL PATHOLOGY RECD BY: Paul Hidalgo ENTERED: 09/17/24 11:42 SP TYPE: LIPOMA OTHR DR: Dr. Skyler Amador MD Tissues: A - Soft tissues, NOS Procedures: Surgery Specimen Level III HEADER OPERATION: Excision lipoma flank PRE-OP DIAGNOSIS: Lipoma of back TISSUE SUBMITTED: A- Lipoma of right flank / back MICROSCOPIC DIAGNOSIS A. Flank/back, right, lipoma, excision: * Mature adipose consistent with lipoma. MICROSCOPIC DESCRIPTION Slides are reviewed. GROSS DESCRIPTION A. Received in formalin labeled with the patient's name and date of . Designated as lipoma right flank/back is a 9.3 x 6.3 x 2.3 cm thomas-yellow, lobulated and predominantly encapsulated soft tissue mass devoid of orientation (inked black). Sectioning reveals thomas-yellow homogenous cut surfaces throughout. Childbirth Educator sections are submitted in 3 cassettes. [place] 09/17/2024 CPT:02446
[2024-09-17] MEDS: Lidocaine 1% /Epi 1:100 (20ml) 20 ML Vial (07:54)
[2024-09-17] MEDS: Bupivacaine Mpf 0.5% 30 ML VIAL (07:55)
--- NOTE | 2024-09-17 07:58 | PCM.OPRPT ---
Operative Report (Standard) Operative Information Date of Procedure: 09/17/24 Pre-Operative Diagnosis: Right lipoma back/flank Post-Operative Diagnosis: Same Surgery/Procedure Performed: Excision of right back/flank lipoma manager of sustainability: Yes Feed Preparation Operator: Luzma Ge Tasks completed by glass ribbon machine operator assistant: Opening & closing and Retracting Type of Anesthesia: Local MAC RN Documented Start/Stop Times: Operation Date: 09/17/24 07:30 Case Time Into Pre-Op 09/17/24 05:46 Anesthesia Start 09/17/24 07:30 Into Room 09/17/24 07:30 Out of Pre-Op 09/17/24 07:30 Procedure Start 09/17/24 07:44 Procedure End 09/17/24 08:15 Anesthesia End 09/17/24 08:18 Out of Room 09/17/24 08:18 Into Recovery 09/17/24 08:37 Into Phase II Recovery 09/17/24 08:48 Out of Recovery 09/17/24 08:48 Procedure Start Time: 07:44 Procedure Stop Time: 08:15 Select all DRAINS/GRAFTS/IMPLANTS that apply: None Special Medications: Ancef 2 g IV x 1 Estimated Blood Loss: < 5 CC Specimen collected: Yes Description of specimen(s) removed: Right back/flank lipoma Description of surgery: Patient was brought into the operating room and placed supine on operating table. A time-out was completed verifying correct patient, procedure, site, position and special equipment prior to beginning procedure. MAC anesthesia was induced. Patient was placed in left lateral decubitus position with appropriate padding. Local anesthesia of mixture of 1-1 with 1% lidocaine with epi and 0.5% Marcaine was used for a total of 18 mL throughout the procedure. Area of the lipoma located at the right back/flank was infiltrated with local anesthesia and incision was made over the lipoma with a 15 blade scalpel. This was deepened with electrocautery and subcutaneous tissues. Lipoma was identified 9.5 cm x 8 cm x 3 cm?this was sent to pathology. Hemostasis was achieved with electrocautery. Incision cavity was irrigated with saline. Incision was closed with subdermal suture of 3-0 Vicryl interrupted and the skin was closed with 4-0 Monocryl. Pressure dressing was also placed over the incision site. Patient tolerated the procedure well and was taken to the postsurgical care unit in stable condition. Surgical Findings: See operative report Complications Complications: No
--- NOTE | 2024-09-17 08:03 | DCINST_ITS ---
Discharge Instructions Diet Discharge Diet: Light diet - advance as tolerated Activity Discharge Activity: May Not Drive (while taking narcotic pain medications.) May shower in (days): 1 Lifting Restrictions: Avoid strenuous activities involving the right lateral back for 1 week Additional Activity Instructions:: Keep pressure dressing on for 2 day --okay to reapply help prevent seroma Dressing / Incision Call your doctor if your incision/area has: Continuous Slow Oozing, Sudden Increased Bleeding, Increased Pain/ Swelling, Increased Redness, Foul Smelling Discharge and Swelling at the incision site Call your doctor if you observe: Fever of 101 or Higher Remove Dressing in: 2 days Cleanse incision/area with: Soap & Water Additional Dressing/Incision Instructions:: Steri-Strips will fall off in 7 to 10 days, if they do not fall off okay to remove after 10 days. Follow Up Care Please Follow Up With: Rohini Menendez MD When: Call the office for a follow-up appointment 2 weeks; after 5 PM and on the weekends call [phone] with any concerns. Test Results: Test results from this visit will be discussed in further detail at your follow- up appointment, if applicable. Discharge Plan Admission Attending Provider: Rohini Menendez Primary Care Provider: Skyler Amador Instructions Print Language: Kinyarwanda Discharge Orders/Prescriptions Prescriptions: New tramadol 50 mg tablet 50 mg PO Q6H PRN (Reason: pain) Qty: 5 0RF Continued venlafaxine 75 mg capsule,extended release 24hr 75 mg PO DAILY dicyclomine 20 mg tablet 20 mg PO Q6H PRN (Reason: cramps) lorazepam 1 mg tablet 1 mg PO QHS PRN (Reason: Anxiety) paroxetine HCl 30 mg tablet 30 mg PO DAILY amlodipine 10 mg tablet 10 mg PO QDAY vitamin A 8,000 UNIT capsule 8,000 unit PO DAILY zinc 50 MG tablet 50 mg PO DAILY vitamin E 400 UNIT capsule 400 unit PO DAILY cyanocobalamin (vitamin B-12) 2,500 MCG tablet 2,500 mcg PO DAILY magnesium oxide 400 MG tablet 400 mg PO DAILY Vitamin D3 1,000 mg PO DAILY levothyroxine 88 mcg tablet 88 mcg PO DAILY omeprazole 40 mg capsule,delayed release(DR/EC) 40 mg PO DAILY fenofibrate 160 mg tablet 160 mg PO QHS sucralfate 1 gram tablet 1 g PO 4X/DAY PRN PRN (Reason: upset stomach) fluticasone propionate [Flonase Allergy Relief] 50 mcg/actuation spray,suspension 2 spray intranasal QDAY Qty: 16 3RF Rx Instructions: administer into each nostril Referrals / Follow Up: Skyler Amador MD [Primary Care Provider] - Disposition Disposition (needs filled in before D/C Order can be placed): Home, Self Care
--- NOTE | 2024-09-17 08:22 | PCM.POST.ANE ---
Anesthesia: Postop Eval I Current Vital Signs Temperature: 97.7 F Pulse Rate: 100 Blood Pressure: 152/75 Respiratory Rate: 18 Pulse Ox: 95 Assessment Airway patent: Yes Spontaneous unlabored respirations: Yes nausea: No Vomiting: No Anesthesia Complication: No Fluid Hydration Crystalloid volume administer (ml): 300 Total IV fluid infused: 300 Progress Note Anesthesia document: Postop Eval 1 completed: Yes
--- NOTE | 2024-09-17 15:42 | POSTOPAN2_ITS ---
Anesthesia Postop Eval I Sum Postop Eval Completion status Anesthesia document: Postop Eval 1 completed: Yes Anesthesia Postop Eval I Summary Anesthesia Postop Eval I Summary: Anesthesia Postop Eval I: Assessment Summary Airway patent Yes 09/17/24 08:22 MANAGER [email or web address] Spontaneous unlabored Yes 09/17/24 08:22 MANAGER WINTER.[email or web address] respirations Mental status nausea No 09/17/24 08:22 MANAGER WINTER.[email or web address] Vomiting No 09/17/24 08:22 MANAGER [email or web address].[email or web address] Anesthesia Postop Eval I: Fluid Summary Crystalloid volume administer 300 09/17/24 08:22 MANAGER [email or web address].[email or web address] (ml) Colloids volume administered ( ml) Blood Product volume administered (ml) Total IV fluid infused 300 09/17/24 08:22 MANAGER [email or web address].[email or web address] Anesthesia Postop Eval I: Summary Notes Anesthesia Complication No 09/17/24 08:22 MANAGER WINTER.[email or web address] Anesthesia Complication Comment: Post-operative progress note Anesthesia: Postop Eval II Evaluation Mental status: Awake Pain Level: 0 nausea: No Vomiting: No
--- NOTE | 2024-09-17 15:42 | PCM.POSTANE2 ---
Anesthesia Postop Eval I Sum Postop Eval Completion status Anesthesia document: Postop Eval 1 completed: Yes Anesthesia Postop Eval I Summary Anesthesia Postop Eval I Summary: Anesthesia Postop Eval I: Assessment Summary Airway patent Yes 09/17/24 08:22 SWEEPER BRUSH MAKER MACHINE.[email or web address] Spontaneous unlabored Yes 09/17/24 08:22 SWEEPER BRUSH MAKER MACHINE.CSIR respirations Mental status nausea No 09/17/24 08:22 SWEEPER BRUSH MAKER MACHINE.CSIR Vomiting No 09/17/24 08:22 SWEEPER BRUSH MAKER MACHINE.[email or web address] Anesthesia Postop Eval I: Fluid Summary Crystalloid volume administer 300 09/17/24 08:22 SWEEPER BRUSH MAKER MACHINE.CSIR (ml) Colloids volume administered ( ml) Blood Product volume administered (ml) Total IV fluid infused 300 09/17/24 08:22 SWEEPER BRUSH MAKER MACHINE.CSIR Anesthesia Postop Eval I: Summary Notes Anesthesia Complication No 09/17/24 08:22 SWEEPER BRUSH MAKER MACHINE.[email or web address] Anesthesia Complication Comment: Post-operative progress note Anesthesia: Postop Eval II Evaluation Mental status: Awake Pain Level: 0 nausea: No Vomiting: No
== END 2024-09-17 09:27 | disposition home or self-care (01) ==
LOC: SDC 05:40 → AC 05:42
PROVIDERS: PCP Family Medicine; Referring Provider Surgery; Visit Provider Surgery
PROC: (CPT 21931; principal; 2024-09-17 07:15)
DX: D17.1 Benign lipomatous neoplasm of skin and subcutaneous tissue of trunk (principal); I10 Essential (primary) hypertension; E78.00 Pure hypercholesterolemia, unspecified; K21.9 Gastro-esophageal reflux disease without esophagitis; Z79.899 Other long term (current) drug therapy; E07.9 Disorder of thyroid, unspecified; Z79.890 Hormone replacement therapy; Z86.018 Personal history of other benign neoplasm
CPT/HCPCS: 21931; 00300; 88304; J2405